=== PATIENT | female | born 1985 | race Caucasian/White ===

== ENCOUNTER 2018-05-17 07:10 | Inpatient (IN) | payer OTHER ==
[2018-05-17] MEDS ORDERED: Ampicillin 2 GM in Sodium Chloride 0.9% 100 ML IV ONE (08:05)
[2018-05-17] MEDS ORDERED: Ondansetron 4 MG Tab.DIS PO PRN (08:05)
[2018-05-17] MEDS ORDERED: Sodium Chloride 0.9% 10 ML Syringe FLUSH PRN (08:05)
[2018-05-17] MEDS ORDERED: Nalbuphine 20 MG/ML 1 ML Syringe IVPUSH PRN (08:05)
--- NOTE | 2018-05-17 08:10 | PCM.LDHP ---
L&D History of Present Illness - General Date of Service: 05/17/18 Admit Problem/Dx: Admission Diagnosis/Problem Admission Diagnosis/Problem Source of Information: Patient History Limitations: Reports: No Limitations - History of Present Illness Introduction:: 32 y/o THONG 05/20/2018 EGVasyl [id number] presented to L&D for Induction of labor. Prior delivery 9#2 oz. GBS positive will begin Ampicillin 11/05/17 initial OB labs Blood type A positive antibody screen negative hemoglobin hematocrit 12.5/36.7 platelets 358,000, rubella immune, serology nonreactive, mixed ford suggestive of contamination on urine culture, hepatitis B surface antigen negative HIV negative TSH 1.6-4 on 10/07/1717. One hour OB glucose screen 127 and 10/15/17. Patient declined GC and chlamydia probe. Ultrasound 11/05/17 estimated gestational age of 6 weeks 5 days and THONG of . On 03/01/18 hemoglobin 10.0/31.4 platelets 212,001 hour OB glucose screen 138 3 hour glucose tolerance test fasting blood sugar 90, 1 hour 171, two-hour 161, 3 hour 119. Serology nonreactive. On 04/22/18 GBS positive. Plan induction of labor, antibiotics for group B strep prophylaxis. Improves with: Reports: None Worsens with: Reports: None Associated Symptoms: Reports: N - Related Data Allergies/Adverse Reactions: Allergies Allergy/AdvReac Type Severity Reaction Status Date / Time cefaclor [From [facility]] Allergy Hives Verified 03/05/18 20:29 Home Medications: Home Meds Levothyroxine [Synthroid] 75 mcg PO DAILY 07/04/15 [History] Iron 1 tab PO BID 03/05/18 [History] PNV95/Ferrous Fumarate/FA [ Tablet] 1 tab PO BID 03/05/18 [History] Doxylamine Succinate [Unisom Sleep Aid] 25 mg PO BEDTIME PRN 05/15/18 [History] Past Medical History Musculoskeletal History: Reports: Other (See Below) (Polyarthritis) Psychiatric History: Reports: ADHD, Anxiety Endocrine/Metabolic History: Reports: Hypothyroidism Hematologic History: Reports: Anemia Other Hematologic History: just during and is on iron supplement along with - Past Surgical History GI Surgical History: Reports: Cholecystectomy Social & Family History - Caffeine Use Caffeine Use: Reports: None H&P Review of Systems - Review of Systems: Review Of Systems: See Below General: Reports: No Symptoms HEENT: Reports: No Symptoms Pulmonary: Reports: No Symptoms Cardiovascular: Reports: No Symptoms Gastrointestinal: Reports: No Symptoms Genitourinary: Reports: No Symptoms Musculoskeletal: Reports: No Symptoms Skin: Reports: No Symptoms Psychiatric: Reports: No Symptoms Neurological: Reports: No Symptoms Hematologic/Lymphatic: Reports: No Symptoms Immunologic: Reports: No Symptoms L&D Exam - Exam Exam: See Below - OB Specific Fundal Height In cm: 39 Movement: Active Heart Tones: Present Heart Tones per Min: 140 Heart Rate (FHR) Variability: Moderate (6-25 bmp) Presentation: Vertex - Cortez Score Cortez Score Cervix Position: Posterior Cortez Score Consistency: Soft Cortez Score Effacement: 0-30% Cortez Score Dilation: 3-4 cm Cortez Score 's Station: -1 ,0 Cortez Score Total: 6 - Exam General: Alert, Oriented HEENT: Conjunctiva Clear, Mucosa Moist & [place], Pupils Equal Neck: Supple, Trachea Midline Lungs: Clear to Auscultation, Normal Respiratory Effort Cardiovascular: Regular Rate, Regular Rhythm GI/Abdominal Exam: Normal Bowel Sounds, Soft, Non-Tender Genitourinary: Normal external exam Extremities: Normal Inspection, Normal Range of Motion, Non-Tender, No Pedal Edema, Normal Capillary Refill, Pedal Edema (1+) Skin: Warm, Dry, Intact Psychiatric: Alert, Normal Affect, Normal Mood - Problem List (1) 39 weeks gestation of SNOMED Code(s): 70784138 ICD Code: Z3A.39 - 39 WEEKS GESTATION OF Status: Acute Current Visit: Yes (2) Anemia affecting in third trimester SNOMED Code(s): 62576853, 12173330 ICD Code: O99.013 - ANEMIA COMPLICATING , THIRD TRIMESTER Status: Acute Current Visit: Yes Problem List Initiated/Reviewed/Updated: No Assessment/Plan Comment:: Amniotomy performed at 0800 hrs. clear fluid category 1 heart rate before and after amniotomy. Patient plans epidural Plan delivery.
[2018-05-17] MEDS ORDERED: Oxytocin/Lactated Ringers 10 UNIT/1,000 ML BAG IV SCH ×2 (08:15)
[2018-05-17] MEDS: Lactated Ringers 1,000 ML IV SCH ×4 (08:22→13:39)
[2018-05-17] MEDS ORDERED: Ondansetron 4 MG/2 ML SDV IVPUSH PRN (09:38)
[2018-05-17] MEDS ORDERED: fentaNYL 100 MCG/2 ML SDV EPIDUR PRN (09:38)
[2018-05-17] MEDS ORDERED: ePHEDrine 50 MG/ML SDV IVPUSH PRN (09:38)
[2018-05-17] MEDS ORDERED: diphenhydrAMINE 50 MG/ML SDV IVPUSH PRN (09:38)
[2018-05-17] MEDS ORDERED: fentaNYL/Bupivacaine-NS 2 MCG/ML-0.125%/PF 100 ML Bag EP SCH (09:45)
[2018-05-17] MEDS: Ampicillin 1 GM in Sodium Chloride 0.9% 100 ML IV SCH ×2 (11:59→17:59)
--- NOTE | 2018-05-17 12:37 | PCM.PREANE ---
Preanesthetic Assessment - Anesthesia/Transfusion/Family Hx Anesthesia History: Prior Anesthesia Without Reaction Family History of Anesthesia Reaction: No Transfusion History: No Prior Transfusion(s) - Review of Systems General: No Symptoms Pulmonary: No Symptoms Cardiovascular: No Symptoms Gastrointestinal: No Symptoms Other: Reports: Thyroid Problems (Hypothyroid), Anxiety (ADHD) - Physical Assessment Pulse: 99 Respiratory Rate: 15 Blood Pressure: 136/90 Vital Signs: Last Vital Signs Temp 37.1 C 05/17/18 08:05 Pulse 99 05/17/18 10:00 Resp 15 05/17/18 08:05 BP 136/90 05/17/18 10:00 Pulse Ox Height: 1.63 m Weight: 102.058 kg ASA Class: 2 Mental Status: Alert & Oriented x3 Airway Class: Mallampati = 2 Dentition: Reports: Normal Dentition Thyro-Mental Finger Breadths: 3 Mouth Opening Finger Breadths: 3 ROM/Head Extension: Full Lungs: Clear to Auscultation, Normal Respiratory Effort Cardiovascular: Regular Rate, Regular Rhythm - Lab Values: Laboratory Last Values WBC 7.09 K/mm3 (3.98-10.04) 05/17/18 07:45 RBC 4.16 M/mm3 (3.98-5.22) 05/17/18 07:45 Hgb 11.1 gm/L (11.2-15.7) L 05/17/18 07:45 Hct 34.1 % (34.1-44.9) 05/17/18 07:45 MCV 82.0 fl (79.4-94.8) 05/17/18 07:45 MCH 26.7 pg (25.6-32.2) 05/17/18 07:45 MCHC 32.6 g/dl (32.2-35.5) 05/17/18 07:45 RDW Std Deviation 45.4 fL (36.4-46.3) 05/17/18 07:45 Plt Count 188 K/mm3 (182-369) 05/17/18 07:45 MPV 12.0 fl (9.4-12.3) 05/17/18 07:45 Neut % (Auto) 74.7 % (34.0-71.1) H 05/17/18 07:45 Lymph % (Auto) 16.6 % (19.3-51.7) L 05/17/18 07:45 [place] % (Auto) 6.6 % (4.7-12.5) 05/17/18 07:45 Eos % (Auto) 1.3 (0.7-5.8) 05/17/18 07:45 Baso % (Auto) 0.1 % (0.1-1.2) 05/17/18 07:45 Neut # (Auto) 5.29 K/mm3 (1.56-6.13) 05/17/18 07:45 Lymph # (Auto) 1.18 K/mm3 (1.18-3.74) 05/17/18 07:45 [place] # (Auto) 0.47 K/mm3 (0.24-0.36) H 05/17/18 07:45 Eos # (Auto) 0.09 K/mm3 (0.04-0.36) 05/17/18 07:45 Baso # (Auto) 0.01 K/mm3 (0.01-0.08) 05/17/18 07:45 - Allergies Allergies/Adverse Reactions: Allergies Allergy/AdvReac Type Severity Reaction Status Date / Time cefaclor [From [facility]] Allergy Hives Verified 03/05/18 20:29 - Acknowledgements Anesthesia Type Planned: Epidural Pt an Appropriate Candidate for the Planned Anesthesia: Yes Alternatives and Risks of Anesthesia Discussed w Pt/Guardian: Yes Pt/Guardian Understands and Agrees with Anesthesia Plan: Yes PreAnesthesia Questionnaire HEENT History: Reports: Impaired Vision, Other (See Below) Other HEENT History: glasses and contacts 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: , 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 Musculoskeletal History: Reports: Other (See Below) (Polyarthritis) Other Musculoskeletal History: arthritis Psychiatric History: Reports: ADHD, Anxiety Endocrine/Metabolic History: Reports: Hypothyroidism Hematologic History: Reports: Anemia Other Hematologic History: just during and is on iron supplement along with - Past Surgical History GI Surgical History: Reports: Cholecystectomy - SUBSTANCE USE Smoking Status *Q: Never Smoker Second Hand Smoke Exposure: No Recreational Drug Use History: No - HOME MEDS Home Medications: Home Meds Levothyroxine [Synthroid] 75 mcg PO DAILY 07/04/15 [History] Iron 1 tab PO BID 03/05/18 [History] Doxylamine Succinate [Unisom Sleep Aid] 25 mg PO BEDTIME PRN 05/15/18 [History] - CURRENT (IN HOUSE) MEDS Current Meds: Current Medications Diphenhydramine HCl (Benadryl) 25 mg IVPUSH Q6H PRN PRN Reason: Pruritis Ephedrine Sulfate (Ephedrine Sulfate) 5 mg IVPUSH ASDIRECTED PRN PRN Reason: Hypotension Fentanyl (Sublimaze) 100 mcg EPIDUR ONETIME PRN PRN Reason: Pain Fentanyl/Bupivacaine HCl (Tdmzflwn-Jovva-Ux 2 Mcg/Ml-0.125%) 100 ml EP ASDIRECTED JOAN Ampicillin Sodium 1 gm/ Sodium (Chloride) 100 mls @ 200 mls/hr IV Q4H JOAN Last Admin: 05/17/18 11:59 Dose: 200 mls/hr Lactated Ringer's (Ringers, Lactated) 1,000 mls @ 100 mls/hr IV ASDIRECTED JOAN Last Admin: 05/17/18 11:58 Dose: 100 mls/hr Oxytocin/Lactated Ringer's (Pitocin In Lr 10 Units/1,000 Ml) 10 unit in 1,000 mls @ 12 mls/hr IV TITRATE JOAN; Protocol Last Titration: 05/17/18 11:15 Dose: 6 munits/min, 36 mls/hr Oxytocin/Lactated Ringer's (Pitocin In Lr 10 Units/1,000 Ml) 10 unit in 1,000 mls @ 500 mls/hr IV .CONTINUOUS [facility] Lidocaine HCl (Xylocaine 1%) 10 ml INJECT ONETIME ONE Stop: 05/17/18 16:01 Nalbuphine HCl (Nubain) 10 mg IVPUSH Q2H PRN PRN Reason: pain Ondansetron HCl (Zofran Odt) 4 mg PO Q4H PRN PRN Reason: Nausea/Vomiting Ondansetron HCl (Zofran) 4 mg IVPUSH ONETIME PRN PRN Reason: Nausea/Vomiting Sodium Chloride (Saline Flush) 10 ml FLUSH ASDIRECTED PRN PRN Reason: Keep Vein Open Discontinued Medications Ampicillin Sodium 2 gm/ Sodium (Chloride) 100 mls @ 200 mls/hr IV ONETIME ONE Stop: 05/17/18 08:34 Last Admin: 05/17/18 08:24 Dose: 200 mls/hr
[2018-05-17] MEDS ORDERED: ePHEDrine/Normal Saline 25 MG/5 ML Syringe ONE (13:00)
[2018-05-17] MEDS ORDERED: Lidocaine 1.5% with EPINEPHrine 1:200,000 5 ML Amp ONE (13:00)
[2018-05-17] MEDS ORDERED: Bupivacaine 0.25% 10 ML SDV ONE (13:00)
--- NOTE | 2018-05-17 14:07 | PCM.SN ---
- Free Text/Narrative Note: Cervix 8 CM, epidural working well. Cat I FHR.
--- NOTE | 2018-05-17 15:25 | PCM.DEL ---
L & D Note - General Info Date of Service: 05/17/18 Mother's Due Date: 05/20/18 - Delivery Note Labor: Augmented by ARM, Augmented by Oxytocin Delivery Outcome: Livebirth (Male liveborn at 1509 hrs. on Thursday05/17/18 KRISH nuchal cord 1 4220 g 9 pounds 4.9 ounces Apgars 8/9 three-vessel cord) Delivery Method: Spontaneous Vaginal Delivery-Single Infant Delivery Mode: Spontaneous Presentation: Left Occiput Anterior (KRISH) Nuchal Cord: Present (Times one easily reduced) Prep: Povidone-Iodine (Betadine Anesthesia Type: Epidural Amniotic Fluid Description: Clear Episiotomy Type: None Laceration: 1st Degree (Midline) Suture type: Other (Monocryl 3-0 times one) Suture size: 3-0 Placenta: Intact, Spontaneous (Placenta delivered at 1512 hrs. on Thursday05/17/18 ) Cord: 3 Vessels Estimated Blood Loss: 250 Resuscitation Needed: No Painter: Suctioned, Bulb Syringe, Stimulated, Warmed, Hilliard Used, Warmer Used Provider: Merrick Roberson Score 1 min: 8 Score 5 min: 9 - General Info Date of Service: 05/17/18 Functional Status: Reports: Pain Controlled - Review of Systems General: Reports: No Symptoms HEENT: Reports: No Symptoms Pulmonary: Reports: No Symptoms Cardiovascular: Reports: No Symptoms Gastrointestinal: Reports: No Symptoms Genitourinary: Reports: No Symptoms Musculoskeletal: Reports: No Symptoms Skin: Reports: No Symptoms Neurological: Reports: No Symptoms Psychiatric: Reports: No Symptoms - Patient Data Vitals - Most Recent: Last Vital Signs Temp 98.7 F 05/17/18 08:05 Pulse 99 05/17/18 12:37 Resp 15 05/17/18 12:37 BP 136/90 05/17/18 12:37 Pulse Ox Weight - Most Recent: 225 lb I&O - Last 24 Hours: Intake & Output 05/17/18 05/17/18 05/17/18 06:59 14:59 22:59 Intake Total 120 Balance 120 Lab Results Last 24 Hours: Laboratory Results - last 24 hr 05/17/18 05/17/18 Range/Units 07:45 07:45 WBC 7.09 (3.98-10.04) K/mm3 RBC 4.16 (3.98-5.22) M/mm3 Hgb 11.1 L (11.2-15.7) gm/L Hct 34.1 (34.1-44.9) % MCV 82.0 (79.4-94.8) fl MCH 26.7 (25.6-32.2) pg MCHC 32.6 (32.2-35.5) g/dl RDW Std Deviation 45.4 (36.4-46.3) fL Plt Count 188 (182-369) K/mm3 MPV 12.0 (9.4-12.3) fl Neut % (Auto) 74.7 H (34.0-71.1) % Lymph % (Auto) 16.6 L (19.3-51.7) % [place] % (Auto) 6.6 (4.7-12.5) % Eos % (Auto) 1.3 (0.7-5.8) Baso % (Auto) 0.1 (0.1-1.2) % Neut # (Auto) 5.29 (1.56-6.13) K/mm3 Lymph # (Auto) 1.18 (1.18-3.74) K/mm3 [place] # (Auto) 0.47 H (0.24-0.36) K/mm3 Eos # (Auto) 0.09 (0.04-0.36) K/mm3 Baso # (Auto) 0.01 (0.01-0.08) K/mm3 RPR Non-reactive (NONREACTIVE) Med Orders - Current: Current Medications Diphenhydramine HCl (Benadryl) 25 mg IVPUSH Q6H PRN PRN Reason: Pruritis Ephedrine Sulfate (Ephedrine Sulfate) 5 mg IVPUSH ASDIRECTED PRN PRN Reason: Hypotension Fentanyl (Sublimaze) 100 mcg EPIDUR ONETIME PRN PRN Reason: Pain Last Admin: 05/17/18 12:38 Dose: 100 mcg Fentanyl/Bupivacaine HCl (Wvwxtdkx-Ojnns-Yx 2 Mcg/Ml-0.125%) 100 ml EP ASDIRECTED JOAN Last Admin: 05/17/18 12:38 Dose: 100 ml Ampicillin Sodium 1 gm/ Sodium (Chloride) 100 mls @ 200 mls/hr IV Q4H [facility] Last Admin: 05/17/18 11:59 Dose: 200 mls/hr Lactated Ringer's (Ringers, Lactated) 1,000 mls @ 100 mls/hr IV ASDIRECTED JOAN Last Admin: 05/17/18 13:39 Dose: 125 mls/hr Oxytocin/Lactated Ringer's (Pitocin In Lr 10 Units/1,000 Ml) 10 unit in 1,000 mls @ 12 mls/hr IV TITRATE JOAN; Protocol Last Titration: 05/17/18 11:15 Dose: 6 munits/min, 36 mls/hr Oxytocin/Lactated Ringer's (Pitocin In Lr 10 Units/1,000 Ml) 10 unit in 1,000 mls @ 500 mls/hr IV .CONTINUOUS JOAN Lidocaine HCl (Xylocaine 1%) 10 ml INJECT ONETIME ONE Stop: 05/17/18 16:01 Nalbuphine HCl (Nubain) 10 mg IVPUSH Q2H PRN PRN Reason: pain Ondansetron HCl (Zofran Odt) 4 mg PO Q4H PRN PRN Reason: Nausea/Vomiting Ondansetron HCl (Zofran) 4 mg IVPUSH ONETIME PRN PRN Reason: Nausea/Vomiting Sodium Chloride (Saline Flush) 10 ml FLUSH ASDIRECTED PRN PRN Reason: Keep Vein Open Discontinued Medications Ampicillin Sodium 2 gm/ Sodium (Chloride) 100 mls @ 200 mls/hr IV ONETIME ONE Stop: 05/17/18 08:34 Last Admin: 05/17/18 08:24 Dose: 200 mls/hr - Exam General: Alert, Oriented HEENT: Pupils Equal, Mucous Membr. Moist/[place] Neck: Supple (Female) Exam: Normal External Exam Extremities: Normal Inspection, Normal Range of Motion, Non-Tender, Normal Capillary Refill, Pedal Edema (1+) Skin: Warm, Dry, Intact Psy/Mental Status: Alert, Normal Affect, Normal Mood - Problem List & Annotations (1) 39 weeks gestation of SNOMED Code(s): 39325636 Code(s): Z3A.39 - 39 WEEKS GESTATION OF Status: Acute Current Visit: Yes (2) Anemia affecting in third trimester SNOMED Code(s): 14818394, 79033445 Code(s): O99.013 - ANEMIA COMPLICATING , THIRD TRIMESTER Status: Acute Current Visit: Yes (3) Nuchal cord without compression, delivered, current hospitalization SNOMED Code(s): 31332285, 734475518 Code(s): O69.81X0 - LABOR AND DEL COMP BY CORD AROUND NECK, W/O COMPRSN, UNSP Status: Acute Current Visit: Yes (4) First degree perineal laceration during delivery SNOMED Code(s): 936175449 Code(s): O70.0 - FIRST DEGREE PERINEAL LACERATION DURING DELIVERY Status: Acute Current Visit: Yes (5) GBS carrier SNOMED Code(s): 8569301709626 Code(s): Z22.330 - CARRIER OF GROUP B STREPTOCOCCUS Status: Acute Current Visit: Yes - Problem List Review Problem List Initiated/Reviewed/Updated: No - My Orders Last 24 Hours: My Active Orders 05/17/18 08:05 Patient Status [ADT] Routine Activity as Tolerated [RC] PFP Communication Order [RC] ASDIRECTED Notify Provider [RC] PRN Urinary Catheter Assessment [RC] ASDIRECTED Vital Signs [RC] PER UNIT ROUTINE Nalbuphine [Nubain] 10 mg IVPUSH Q2H PRN Ondansetron [Zofran ODT] 4 mg PO Q4H PRN Sodium Chloride 0.9% [Saline Flush] 10 ml FLUSH ASDIRECTED PRN Electronic Heart Tones Ext w TOCO [WOMSER] Routine Electronic Heart Tones Internal [WOMSER] Per Unit Routine Peripheral IV Insertion Adult [OM.PC] Routine Resuscitation Status Routine 05/17/18 08:06 Peripheral IV Care [RC] Q2HR 05/17/18 08:08 Pump Management, Intrathecal [RC] ASDIRECTED 05/17/18 08:15 Lactated Ringers [Ringers, Lactated] 1,000 ml IV ASDIRECTED Oxytocin/Lactated Ringers [Pitocin in LR 10 Units/1,000 ML] 10 unit in 1,000 ml IV .CONTINUOUS Oxytocin/Lactated Ringers [Pitocin in LR 10 Units/1,000 ML] 10 unit in 1,000 ml IV TITRATE 05/17/18 12:00 Ampicillin 1 gm Sodium Chloride 0.9% [Normal Saline] 100 ml IV Q4H 05/17/18 16:00 Lidocaine 1% [Xylocaine 1%] 10 ml INJECT ONETIME ONE 05/17/18 Breakfast Regular Diet [DIET] - Plan Plan:: Amniotomy performed at 0800 hrs. clear fluid category 1 heart rate before and after amniotomy. Patient plans epidural Plan delivery.
[2018-05-17] MEDS ORDERED: Lidocaine 1% 50 ML MDV INJECT ONE (16:00)
[2018-05-17] MEDS ORDERED: Simethicone 80 MG Tab.Chew PO PRN (17:35)
[2018-05-17] MEDS ORDERED: Witch Hazel Medicated Pads 100/Jar TOP PRN (17:35)
[2018-05-17] MEDS ORDERED: Acetaminophen/oxyCODONE 325-5 MG Tab PO PRN (17:35)
[2018-05-17] MEDS ORDERED: Lanolin 100% Cream 7 GM Tube TOP PRN (17:35)
[2018-05-17] MEDS ORDERED: Benzocaine/Menthol 20%-0.5% Spray 56 GM Canister TOP PRN (17:35)
[2018-05-17] MEDS ORDERED: Docusate Sodium 100 MG Cap PO PRN (17:35)
[2018-05-17] MEDS: Ibuprofen 600 MG Tab PO PRN (19:28)
[2018-05-17] MEDS: Acetaminophen 325 MG Tab PO PRN (20:51)
[2018-05-18] MEDS: Ibuprofen 600 MG Tab PO PRN ×3 (00:13→13:18)
[2018-05-18] MEDS: Acetaminophen 325 MG Tab PO PRN ×3 (03:41→16:29)
[2018-05-18] MEDS ORDERED: Levothyroxine 75 MCG Tab PO SCH (06:00)
--- NOTE | 2018-05-18 07:30 | PCM48HPAN ---
Post Anesthesia Note - EVALUATION WITHIN 48HRS OF ANESTHETIC Vital Signs in Normal Range: Yes Patient Participated in Evaluation: Yes Respiratory Function Stable: Yes Airway Patent: Yes Cardiovascular Function Stable: Yes Hydration Status Stable: Yes Pain Control Satisfactory: Yes Nausea and Vomiting Control Satisfactory: Yes Mental Status Recovered: Yes Pulse Rate: 87 Resp Rate: 16 Temperature: 98.1 F Blood Pressure: 114/66
[2018-05-18 09:07] VITALS: BP 120/77
--- NOTE | 2018-05-18 13:35 | PCM.DCSUM1 ---
Discharge Summary - Hospital Course Free Text/Narrative:: [facility] LIVE L/D Delivery Note Patient Name: GLADYS ADAME Date of : 87 Patient Status: Inpatient Attending Provider: Merrick Roberson Date: 05/17/18 15:20 Initialization Date: 05/17/18 15:20 L & D Note - General Info Date of Service: 05/17/18 Mother's Due Date: 05/20/18 - Delivery Note Labor: Augmented by ARM, Augmented by Oxytocin Delivery Outcome: Livebirth (Male liveborn at 1509 hrs. on Thursday05/17/18 KRISH nuchal cord 1 4220 g 9 pounds 4.9 ounces Apgars 8/9 three-vessel cord) Delivery Method: Spontaneous Vaginal Delivery-Single Infant Delivery Mode: Spontaneous Presentation: Left Occiput Anterior (KRISH) Nuchal Cord: Present (Times one easily reduced) Prep: Povidone-Iodine (Betadine Anesthesia Type: Epidural Amniotic Fluid Description: Clear Episiotomy Type: None Laceration: 1st Degree (Midline) Suture type: Other (Monocryl 3-0 times one) Suture size: 3-0 Placenta: Intact, Spontaneous (Placenta delivered at 1512 hrs. on Thursday05/17/18 ) Cord: 3 Vessels Estimated Blood Loss: 250 Resuscitation Needed: No [place]: Suctioned, Bulb Syringe, Stimulated, Warmed, [place] Used, Warmer Used Provider: Merrick Roberson Score 1 min: 8 Score 5 min: 9 - General Info Date of Service: 05/17/18 Functional Status: Reports: Pain Controlled - Review of Systems General: Reports: No Symptoms HEENT: Reports: No Symptoms Pulmonary: Reports: No Symptoms Cardiovascular: Reports: No Symptoms Gastrointestinal: Reports: No Symptoms Genitourinary: Reports: No Symptoms Musculoskeletal: Reports: No Symptoms Skin: Reports: No Symptoms Neurological: Reports: No Symptoms Psychiatric: Reports: No Symptoms - Patient Data Vitals - Most Recent: Last Vital Signs Temp 98.7 F 05/17/18 08:05 Pulse 99 05/17/18 12:37 Resp 15 05/17/18 12:37 BP 136/90 05/17/18 12:37 Pulse Ox Weight - Most Recent: 225 lb I&O - Last 24 Hours: Intake & Output 05/17/18 05/17/18 05/17/18 06:59 14:59 22:59 Intake Total 120 Balance 120 Lab Results Last 24 Hours: Laboratory Results - last 24 hr 05/17/18 05/17/18 Range/Units 07:45 07:45 WBC 7.09 (3.98-10.04) K/mm3 RBC 4.16 (3.98-5.22) M/mm3 Hgb 11.1 L (11.2-15.7) gm/L Hct 34.1 (34.1-44.9) % MCV 82.0 (79.4-94.8) fl MCH 26.7 (25.6-32.2) pg MCHC 32.6 (32.2-35.5) g/dl RDW Std Deviation 45.4 (36.4-46.3) fL Plt Count 188 (182-369) K/mm3 MPV 12.0 (9.4-12.3) fl Neut % (Auto) 74.7 H (34.0-71.1) % Lymph % (Auto) 16.6 L (19.3-51.7) % [place] % (Auto) 6.6 (4.7-12.5) % Eos % (Auto) 1.3 (0.7-5.8) Baso % (Auto) 0.1 (0.1-1.2) % Neut # (Auto) 5.29 (1.56-6.13) K/mm3 Lymph # (Auto) 1.18 (1.18-3.74) K/mm3 [place] # (Auto) 0.47 H (0.24-0.36) K/mm3 Eos # (Auto) 0.09 (0.04-0.36) K/mm3 Baso # (Auto) 0.01 (0.01-0.08) K/mm3 RPR Non-reactive (NONREACTIVE) Med Orders - Current: Current Medications Diphenhydramine HCl (Benadryl) 25 mg IVPUSH Q6H PRN PRN Reason: Pruritis Ephedrine Sulfate (Ephedrine Sulfate) 5 mg IVPUSH ASDIRECTED PRN PRN Reason: Hypotension Fentanyl (Sublimaze) 100 mcg EPIDUR ONETIME PRN PRN Reason: Pain Last Admin: 05/17/18 12:38 Dose: 100 mcg Fentanyl/Bupivacaine HCl (Natoyyeb-Ecaeg-Ly 2 Mcg/Ml-0.125%) 100 ml EP ASDIRECTED JOAN Last Admin: 05/17/18 12:38 Dose: 100 ml Ampicillin Sodium 1 gm/ Sodium (Chloride) 100 mls @ 200 mls/hr IV Q4H JOAN Last Admin: 05/17/18 11:59 Dose: 200 mls/hr Lactated Ringer's (Ringers, Lactated) 1,000 mls @ 100 mls/hr IV ASDIRECTED JOAN Last Admin: 05/17/18 13:39 Dose: 125 mls/hr Oxytocin/Lactated Ringer's (Pitocin In Lr 10 Units/1,000 Ml) 10 unit in 1,000 mls @ 12 mls/hr IV TITRATE JOAN; Protocol Last Titration: 05/17/18 11:15 Dose: 6 munits/min, 36 mls/hr Oxytocin/Lactated Ringer's (Pitocin In Lr 10 Units/1,000 Ml) 10 unit in 1,000 mls @ 500 mls/hr IV .CONTINUOUS [facility] Lidocaine HCl (Xylocaine 1%) 10 ml INJECT ONETIME ONE Stop: 05/17/18 16:01 Nalbuphine HCl (Nubain) 10 mg IVPUSH Q2H PRN PRN Reason: pain Ondansetron HCl (Zofran Odt) 4 mg PO Q4H PRN PRN Reason: Nausea/Vomiting Ondansetron HCl (Zofran) 4 mg IVPUSH ONETIME PRN PRN Reason: Nausea/Vomiting Sodium Chloride (Saline Flush) 10 ml FLUSH ASDIRECTED PRN PRN Reason: Keep Vein Open Discontinued Medications Ampicillin Sodium 2 gm/ Sodium (Chloride) 100 mls @ 200 mls/hr IV ONETIME ONE Stop: 05/17/18 08:34 Last Admin: 05/17/18 08:24 Dose: 200 mls/hr - Exam General: Alert, Oriented HEENT: Pupils Equal, Mucous Membr. Moist/[place] Neck: Supple (Female) Exam: Normal External Exam Extremities: Normal Inspection, Normal Range of Motion, Non-Tender, Normal Capillary Refill, Pedal Edema (1+) Skin: Warm, Dry, Intact Psy/Mental Status: Alert, Normal Affect, Normal Mood - Problem List & Annotations (1) 39 weeks gestation of SNOMED Code(s): 21995220 Code(s): Z3A.39 - 39 WEEKS GESTATION OF Status: Acute Current Visit: Yes (2) Anemia affecting in third trimester SNOMED Code(s): 27975595, 60215165 Code(s): O99.013 - ANEMIA COMPLICATING , THIRD TRIMESTER Status: Acute Current Visit: Yes (3) Nuchal cord without compression, delivered, current hospitalization SNOMED Code(s): 18909012, 210135994 Code(s): O69.81X0 - LABOR AND DEL COMP BY CORD AROUND NECK, W/O COMPRSN, UNSP Status: Acute Current Visit: Yes (4) First degree perineal laceration during delivery SNOMED Code(s): 831158105 Code(s): O70.0 - FIRST DEGREE PERINEAL LACERATION DURING DELIVERY Status: Acute Current Visit: Yes (5) GBS carrier SNOMED Code(s): 0418288143850 Code(s): Z22.330 - CARRIER OF GROUP B STREPTOCOCCUS Status: Acute Current Visit: Yes - Problem List Review Problem List Initiated/Reviewed/Updated: No - My Orders Last 24 Hours: My Active Orders 05/17/18 08:05 Patient Status [ADT] Routine Activity as Tolerated [RC] PFP Communication Order [RC] ASDIRECTED Notify Provider [RC] PRN Urinary Catheter Assessment [RC] ASDIRECTED Vital Signs [RC] PER UNIT ROUTINE Nalbuphine [Nubain] 10 mg IVPUSH Q2H PRN Ondansetron [Zofran ODT] 4 mg PO Q4H PRN Sodium Chloride 0.9% [Saline Flush] 10 ml FLUSH ASDIRECTED PRN Electronic Heart Tones Ext w TOCO [WOMSER] Routine Electronic Heart Tones Internal [WOMSER] Per Unit Routine Peripheral IV Insertion Adult [OM.PC] Routine Resuscitation Status Routine 05/17/18 08:06 Peripheral IV Care [RC] Q2HR 05/17/18 08:08 Pump Management, Intrathecal [RC] ASDIRECTED 05/17/18 08:15 Lactated Ringers [Ringers, Lactated] 1,000 ml IV ASDIRECTED Oxytocin/Lactated Ringers [Pitocin in LR 10 Units/1,000 ML] 10 unit in 1,000 ml IV .CONTINUOUS Oxytocin/Lactated Ringers [Pitocin in LR 10 Units/1,000 ML] 10 unit in 1,000 ml IV TITRATE 05/17/18 12:00 Ampicillin 1 gm Sodium Chloride 0.9% [Normal Saline] 100 ml IV Q4H 05/17/18 16:00 Lidocaine 1% [Xylocaine 1%] 10 ml INJECT ONETIME ONE 05/17/18 Breakfast Regular Diet [DIET] - Plan Plan:: Amniotomy performed at 0800 hrs. clear fluid category 1 heart rate before and after amniotomy. Patient plans epidural Plan delivery. HPI Initial Comments: [facility] LIVE L/D Delivery Note Patient Name: GLADYS ADAME Date of : 87 Patient Status: Inpatient Attending Provider: Merrick Roberson Date: 05/17/18 15:20 Initialization Date: 05/17/18 15:20 L & D Note - General Info Date of Service: 05/17/18 Mother's Due Date: 05/20/18 - Delivery Note Labor: Augmented by ARM, Augmented by Oxytocin Delivery Outcome: Livebirth (Male liveborn at 1509 hrs. on Thursday05/17/18 KRISH nuchal cord 1 4220 g 9 pounds 4.9 ounces Apgars 8/9 three-vessel cord) Delivery Method: Spontaneous Vaginal Delivery-Single Infant Delivery Mode: Spontaneous Presentation: Left Occiput Anterior (KRISH) Nuchal Cord: Present (Times one easily reduced) Prep: Povidone-Iodine (Betadine Anesthesia Type: Epidural Amniotic Fluid Description: Clear Episiotomy Type: None Laceration: 1st Degree (Midline) Suture type: Other (Monocryl 3-0 times one) Suture size: 3-0 Placenta: Intact, Spontaneous (Placenta delivered at 1512 hrs. on Thursday05/17/18 ) Cord: 3 Vessels Estimated Blood Loss: 250 Resuscitation Needed: No [place]: Suctioned, Bulb Syringe, Stimulated, Warmed, [place] Used, Warmer Used Provider: Merrick Roberson Score 1 min: 8 Score 5 min: 9 - General Info Date of Service: 05/17/18 Functional Status: Reports: Pain Controlled - Review of Systems General: Reports: No Symptoms HEENT: Reports: No Symptoms Pulmonary: Reports: No Symptoms Cardiovascular: Reports: No Symptoms Gastrointestinal: Reports: No Symptoms Genitourinary: Reports: No Symptoms Musculoskeletal: Reports: No Symptoms Skin: Reports: No Symptoms Neurological: Reports: No Symptoms Psychiatric: Reports: No Symptoms - Patient Data Vitals - Most Recent: Last Vital Signs Temp 98.7 F 05/17/18 08:05 Pulse 99 05/17/18 12:37 Resp 15 05/17/18 12:37 BP 136/90 05/17/18 12:37 Pulse Ox Weight - Most Recent: 225 lb I&O - Last 24 Hours: Intake & Output 05/17/18 05/17/18 05/17/18 06:59 14:59 22:59 Intake Total 120 Balance 120 Lab Results Last 24 Hours: Laboratory Results - last 24 hr 05/17/18 05/17/18 Range/Units 07:45 07:45 WBC 7.09 (3.98-10.04) K/mm3 RBC 4.16 (3.98-5.22) M/mm3 Hgb 11.1 L (11.2-15.7) gm/L Hct 34.1 (34.1-44.9) % MCV 82.0 (79.4-94.8) fl MCH 26.7 (25.6-32.2) pg MCHC 32.6 (32.2-35.5) g/dl RDW Std Deviation 45.4 (36.4-46.3) fL Plt Count 188 (182-369) K/mm3 MPV 12.0 (9.4-12.3) fl Neut % (Auto) 74.7 H (34.0-71.1) % Lymph % (Auto) 16.6 L (19.3-51.7) % [place] % (Auto) 6.6 (4.7-12.5) % Eos % (Auto) 1.3 (0.7-5.8) Baso % (Auto) 0.1 (0.1-1.2) % Neut # (Auto) 5.29 (1.56-6.13) K/mm3 Lymph # (Auto) 1.18 (1.18-3.74) K/mm3 [place] # (Auto) 0.47 H (0.24-0.36) K/mm3 Eos # (Auto) 0.09 (0.04-0.36) K/mm3 Baso # (Auto) 0.01 (0.01-0.08) K/mm3 RPR Non-reactive (NONREACTIVE) Med Orders - Current: Current Medications Diphenhydramine HCl (Benadryl) 25 mg IVPUSH Q6H PRN PRN Reason: Pruritis Ephedrine Sulfate (Ephedrine Sulfate) 5 mg IVPUSH ASDIRECTED PRN PRN Reason: Hypotension Fentanyl (Sublimaze) 100 mcg EPIDUR ONETIME PRN PRN Reason: Pain Last Admin: 05/17/18 12:38 Dose: 100 mcg Fentanyl/Bupivacaine HCl (Ghlhqmue-Cdqyt-Qj 2 Mcg/Ml-0.125%) 100 ml EP ASDIRECTED JOAN Last Admin: 05/17/18 12:38 Dose: 100 ml Ampicillin Sodium 1 gm/ Sodium (Chloride) 100 mls @ 200 mls/hr IV Q4H JOAN Last Admin: 05/17/18 11:59 Dose: 200 mls/hr Lactated Ringer's (Ringers, Lactated) 1,000 mls @ 100 mls/hr IV ASDIRECTED JOAN Last Admin: 05/17/18 13:39 Dose: 125 mls/hr Oxytocin/Lactated Ringer's (Pitocin In Lr 10 Units/1,000 Ml) 10 unit in 1,000 mls @ 12 mls/hr IV TITRATE JOAN; Protocol Last Titration: 05/17/18 11:15 Dose: 6 munits/min, 36 mls/hr Oxytocin/Lactated Ringer's (Pitocin In Lr 10 Units/1,000 Ml) 10 unit in 1,000 mls @ 500 mls/hr IV .CONTINUOUS JOAN Lidocaine HCl (Xylocaine 1%) 10 ml INJECT ONETIME ONE Stop: 05/17/18 16:01 Nalbuphine HCl (Nubain) 10 mg IVPUSH Q2H PRN PRN Reason: pain Ondansetron HCl (Zofran Odt) 4 mg PO Q4H PRN PRN Reason: Nausea/Vomiting Ondansetron HCl (Zofran) 4 mg IVPUSH ONETIME PRN PRN Reason: Nausea/Vomiting Sodium Chloride (Saline Flush) 10 ml FLUSH ASDIRECTED PRN PRN Reason: Keep Vein Open Discontinued Medications Ampicillin Sodium 2 gm/ Sodium (Chloride) 100 mls @ 200 mls/hr IV ONETIME ONE Stop: 05/17/18 08:34 Last Admin: 05/17/18 08:24 Dose: 200 mls/hr - Exam General: Alert, Oriented HEENT: Pupils Equal, Mucous Membr. Moist/[place] Neck: Supple (Female) Exam: Normal External Exam Extremities: Normal Inspection, Normal Range of Motion, Non-Tender, Normal Capillary Refill, Pedal Edema (1+) Skin: Warm, Dry, Intact Psy/Mental Status: Alert, Normal Affect, Normal Mood - Problem List & Annotations (1) 39 weeks gestation of SNOMED Code(s): 66889769 Code(s): Z3A.39 - 39 WEEKS GESTATION OF Status: Acute Current Visit: Yes (2) Anemia affecting in third trimester SNOMED Code(s): 86467264, 83062536 Code(s): O99.013 - ANEMIA COMPLICATING , THIRD TRIMESTER Status: Acute Current Visit: Yes (3) Nuchal cord without compression, delivered, current hospitalization SNOMED Code(s): 88520098, 731592279 Code(s): O69.81X0 - LABOR AND DEL COMP BY CORD AROUND NECK, W/O COMPRSN, UNSP Status: Acute Current Visit: Yes (4) First degree perineal laceration during delivery SNOMED Code(s): 899933493 Code(s): O70.0 - FIRST DEGREE PERINEAL LACERATION DURING DELIVERY Status: Acute Current Visit: Yes (5) GBS carrier SNOMED Code(s): 1149135682403 Code(s): Z22.330 - CARRIER OF GROUP B STREPTOCOCCUS Status: Acute Current Visit: Yes - Problem List Review Problem List Initiated/Reviewed/Updated: No - My Orders Last 24 Hours: My Active Orders 05/17/18 08:05 Patient Status [ADT] Routine Activity as Tolerated [RC] PFP Communication Order [RC] ASDIRECTED Notify Provider [RC] PRN Urinary Catheter Assessment [RC] ASDIRECTED Vital Signs [RC] PER UNIT ROUTINE Nalbuphine [Nubain] 10 mg IVPUSH Q2H PRN Ondansetron [Zofran ODT] 4 mg PO Q4H PRN Sodium Chloride 0.9% [Saline Flush] 10 ml FLUSH ASDIRECTED PRN Electronic Heart Tones Ext w TOCO [WOMSER] Routine Electronic Heart Tones Internal [WOMSER] Per Unit Routine Peripheral IV Insertion Adult [OM.PC] Routine Resuscitation Status Routine 05/17/18 08:06 Peripheral IV Care [RC] Q2HR 05/17/18 08:08 Pump Management, Intrathecal [RC] ASDIRECTED 05/17/18 08:15 Lactated Ringers [Ringers, Lactated] 1,000 ml IV ASDIRECTED Oxytocin/Lactated Ringers [Pitocin in LR 10 Units/1,000 ML] 10 unit in 1,000 ml IV .CONTINUOUS Oxytocin/Lactated Ringers [Pitocin in LR 10 Units/1,000 ML] 10 unit in 1,000 ml IV TITRATE 05/17/18 12:00 Ampicillin 1 gm Sodium Chloride 0.9% [Normal Saline] 100 ml IV Q4H 05/17/18 16:00 Lidocaine 1% [Xylocaine 1%] 10 ml INJECT ONETIME ONE 05/17/18 Breakfast Regular Diet [DIET] - Plan Plan:: Amniotomy performed at 0800 hrs. clear fluid category 1 heart rate before and after amniotomy. Patient plans epidural Plan delivery. Brief History: [facility] LIVE . L/D Delivery Note. [facility] Record Number: [id number]. Date of : Patient Status: Inpatient. Attending Provider: Merrick Roberson Number: [id number]. Date: 05/17/18 15:20Initialization Date: 05/17/18 15:20. L & D Note. - General Info. Date of Service: 05/17/18. Mother's Due Date: 05/20/18. - Delivery Note. Labor: Augmented by ARM, Augmented by Oxytocin. Delivery Outcome: Livebirth (Male liveborn at 1509 hrs. on Thursday05/17/18 KRISH nuchal cord 1 4220 g 9 pounds 4.9 ounces Apgars 8/9 three-vessel cord). Infant Delivery Method: Spontaneous Vaginal Delivery-Single. Delivery Mode: Spontaneous. Presentation: Left Occiput Anterior (KRISH). Nuchal Cord: Present (Times one easily reduced). Prep: Povidone-Iodine (Betadine. Anesthesia Type: Epidural. Amniotic Fluid Description: Clear. Episiotomy Type : None. Laceration: 1st Degree (Midline). Suture type: Other (Monocryl 3-0 times one). Suture size: 3-0. Placenta: Intact, Spontaneous (Placenta delivered at 1512 hrs. on Thursday05/17/18). Cord: 3 Vessels. Estimated Blood Loss: 250. Resuscitation Needed: No. [place]: Suctioned, Bulb Syringe, Stimulated, Warmed, [place] Used, Warmer Used. Provider: Merrick Roberson. Score 1 min: 8. Score 5 min: 9. - General Info. Date of Service: 05/17/18. Functional Status: Reports: Pain Controlled. - Review of Systems. General: Reports: No Symptoms. HEENT: Reports: No Symptoms. Pulmonary: Reports: No Symptoms. Cardiovascular: Reports: No Symptoms. Gastrointestinal: Reports: No Symptoms. Genitourinary: Reports: No Symptoms. Musculoskeletal: Reports: No Symptoms. Skin: Reports: No Symptoms. Neurological: Reports: No Symptoms. Psychiatric: Reports: No Symptoms. - Patient Data. Vitals - Most Recent: Last Vital Signs. Temp 98.7 F 05/17/18 08:05. Pulse 99 05/17/18 12:37. Resp 15 05/17/18 12:37. BP 136/90 12:37. Pulse Ox. Weight - Most Recent: 225 lb. I&O - Last 24 Hours: Intake & Output. 05/17/1900. 06:5914:5922:59. Intake [id number]. [id number]. Lab Results Last 24 Hours: Laboratory Results - last 24 hr. Range/Units. 07:4507:45. WBC 7.09 (3.98-10.04) K/mm3. RBC 4.16 (3.98-5.22) M/mm3. Hgb 11.1 L (11.2-15.7) gm/L. Hct 34.1 (34.1-44.9) %. MCV 82.0 (79.4-94.8) fl. MCH 26.7 (25.6-32.2) pg. MCHC 32.6 (32.2-35.5) g/ dl. RDW Std Deviation 45.4 (36.4-46.3) fL. Plt Count 188 (182-369) K/mm3. MPV 12.0 (9.4-12.3) fl. Neut % (Auto) 74.7 H (34.0-71.1) %. Lymph % (Auto) 16.6 L (19.3-51.7) %. [place] % (Auto) 6.6 (4.7-12.5) %. Eos % (Auto) 1.3 (0.7- 5.8). Baso % (Auto) 0.1 (0.1-1.2) %. Neut # (Auto) 5.29 (1.56-6.13) K/mm3. Lymph # (Auto) 1.18 (1.18-3.74) K/mm3. [place] # (Auto) 0.47 H (0.24-0.36) K/ mm3. Eos # (Auto) 0.09 (0.04-0.36) K/mm3. Baso # (Auto) 0.01 (0.01-0.08) K/ mm3. RPR Non-reactive (NONREACTIVE). Med Orders - Current: Current Medications. Diphenhydramine HCl (Benadryl) 25 mg IVPUSH Q6H PRN. PRN Reason : Pruritis. Ephedrine Sulfate (Ephedrine Sulfate) 5 mg IVPUSH ASDIRECTED PRN. PRN Reason: Hypotension. Fentanyl (Sublimaze) 100 mcg EPIDUR ONETIME PRN. PRN Reason: Pain. Last Admin: 05/17/18 12:38 Dose: 100 mcg. Fentanyl/ Bupivacaine HCl (Ssejaxhc-Fudzg-Fp 2 Mcg/Ml-0.125%) 100 ml EP ASDIRECTED JOAN. Last Admin: 05/17/18 12:38 Dose: 100 ml. Ampicillin Sodium 1 gm/ Sodium ( Chloride) 100 mls @ 200 mls/hr IV Q4H JOAN. Last Admin: 05/17/18 11:59 Dose: 200 mls/hr. Lactated Ringer's (Ringers, Lactated) 1,000 mls @ 100 mls/hr IV ASDIRECTED JOAN. Last Admin: 05/17/18 13:39 Dose: 125 mls/hr. Oxytocin/ Lactated Ringer's (Pitocin In Lr 10 Units/1,000 Ml) 10 unit in 1,000 mls @ 12 mls/hr IV TITRATE JOAN; Protocol. Last Titration: 05/17/18 11:15 Dose: 6 munits /min, 36 mls/hr. Oxytocin/Lactated Ringer's (Pitocin In Lr 10 Units/1,000 Ml) 10 unit in 1,000 mls @ 500 mls/hr IV .CONTINUOUS JOAN. Lidocaine HCl (Xylocaine 1%) 10 ml INJECT ONETIME ONE. Stop: 05/17/18 16:01. Nalbuphine HCl (Nubain) 10 mg IVPUSH Q2H PRN. PRN Reason: pain. Ondansetron HCl (Zofran Odt) 4 mg PO Q4H PRN. PRN Reason: Nausea/Vomiting. Ondansetron HCl (Zofran) 4 mg IVPUSH ONETIME PRN. PRN Reason: Nausea/Vomiting. Sodium Chloride (Saline Flush) 10 ml FLUSH ASDIRECTED PRN. PRN Reason: Keep Vein Open. Discontinued Medications. Ampicillin Sodium 2 gm/ Sodium (Chloride) 100 mls @ 200 mls/hr IV ONETIME ONE. Stop: 05/17/18 08:34. Last Admin: 05/17/18 08:24 Dose: 200 mls/hr. - Exam. General: Alert, Oriented. HEENT: Pupils Equal, Mucous Membr. Moist/[place]. Neck: Supple. (Female) Exam: Normal External Exam. Extremities : Normal Inspection, Normal Range of Motion, Non-Tender, Normal Capillary Refill , Pedal Edema (1+). Skin: Warm, Dry, Intact. Psy/Mental Status: Alert, Normal Affect, Normal Mood. - Problem List & Annotations. (1) 39 weeks gestation of . SNOMED Code(s): 51790161. Code(s): Z3A.39 - 39 WEEKS GESTATION OF Status: Acute Current Visit: Yes. (2) Anemia affecting in third trimester. SNOMED Code(s): 33832104, 93405979. Code(s): O99.013 - ANEMIA COMPLICATING , THIRD TRIMESTER Status: Acute Current Visit: Yes. (3) Nuchal cord without compression, delivered, current hospitalization. SNOMED Code(s): 54045350, 200269676. Code(s): O69.81X0 - LABOR AND DEL COMP BY CORD AROUND NECK, W/O COMPRSN, UNSP Status: Acute Current Visit: Yes. (4) First degree perineal laceration during delivery. SNOMED Code(s): 712009448. Code(s): O70.0 - FIRST DEGREE PERINEAL LACERATION DURING DELIVERY Status: Acute Current Visit: Yes. (5) GBS carrier. SNOMED Code(s): 1674609648018. Code(s): Z22.330 - CARRIER OF GROUP B STREPTOCOCCUS Status: Acute Current Visit: Yes. - Problem List Review. Problem List Initiated/Reviewed/Updated: No. - My Orders. Last 24 Hours: My Active Orders. 05/17/18 08:05. Patient Status [ADT] Routine. Activity as Tolerated [RC] PFP. Communication Order [RC ] ASDIRECTED. Notify Provider [RC] PRN. Urinary Catheter Assessment [RC] ASDIRECTED. Vital Signs [RC] PER UNIT ROUTINE. Nalbuphine [Nubain] 10 mg IVPUSH Q2H PRN. Ondansetron [Zofran ODT] 4 mg PO Q4H PRN. Sodium Chloride 0.9% [Saline Flush] 10 ml FLUSH ASDIRECTED PRN. Electronic Heart Tones Ext w TOCO [WOMSER] Routine. Electronic Heart Tones Internal [WOMSER] Per Unit Routine. Peripheral IV Insertion Adult [OM.PC] Routine. Resuscitation Status Routine. 05/17/18 08:06. Peripheral IV Care [RC] Q2HR. 05/17/18 08:08. Pump Management, Intrathecal [RC] ASDIRECTED. 05/17/18 08:15. Lactated Ringers [Ringers, Lactated] 1,000 ml IV ASDIRECTED. Oxytocin/ Lactated Ringers [Pitocin in LR 10 Units/1,000 ML] 10 unit in 1,000 ml IV .CONTINUOUS. Oxytocin/Lactated Ringers [Pitocin in LR 10 Units/1,000 ML] 10 unit in 1,000 ml IV TITRATE. 05/17/18 12:00. Ampicillin 1 gm Sodium Chloride 0.9% [Normal Saline] 100 ml IV Q4H. 05/17/18 16:00. Lidocaine 1% [ Xylocaine 1%] 10 ml INJECT ONETIME ONE. 05/17/18 Breakfast. Regular Diet [ DIET]. - Plan. Plan:: Amniotomy performed at 0800 hrs. clear fluid category 1 heart rate before and after amniotomy. Patient plans epidural. Plan delivery. Diagnosis: Stroke: No - Discharge Data Discharge Date: 05/18/18 Discharge Disposition: Home, Self-Care 01 Condition: Good - Discharge Diagnosis/Problem(s) (1) 39 weeks gestation of SNOMED Code(s): 08912000 ICD Code: Z3A.39 - 39 WEEKS GESTATION OF Status: Acute Current Visit: Yes (2) Anemia affecting in third trimester SNOMED Code(s): 62433068, 02531752 ICD Code: O99.013 - ANEMIA COMPLICATING , THIRD TRIMESTER Status: Acute Current Visit: Yes (3) Nuchal cord without compression, delivered, current hospitalization SNOMED Code(s): 75647375, 083070874 ICD Code: O69.81X0 - LABOR AND DEL COMP BY CORD AROUND NECK, W/O COMPRSN, UNSP Status: Acute Current Visit: Yes (4) First degree perineal laceration during delivery SNOMED Code(s): 521418329 ICD Code: O70.0 - FIRST DEGREE PERINEAL LACERATION DURING DELIVERY Status: Acute Current Visit: Yes (5) GBS carrier SNOMED Code(s): 8221235132091 ICD Code: Z22.330 - CARRIER OF GROUP B STREPTOCOCCUS Status: Acute Current Visit: Yes - Patient Summary/Data Complications: none Consults: None Hospital Course: Uneventful - Patient Instructions Diet: Usual Diet as Tolerated Driving: Do Not Drive (2 days) Showering/Bathing: May Shower Notify Provider of: Fever, Increased Pain, Swelling and Redness, Drainage, Nausea and/or Vomiting - Discharge Plan *PRESCRIPTION DRUG MONITORING PROGRAM REVIEWED*: Not Applicable *COPY OF PRESCRIPTION DRUG MONITORING REPORT IN PATIENT BRADY: Not Applicable Home Medications: Home Meds Levothyroxine [Synthroid] 75 mcg PO DAILY 07/04/15 [History] Iron 1 tab PO BID 03/05/18 [History] Doxylamine Succinate [Unisom Sleep Aid] 25 mg PO BEDTIME PRN 05/15/18 [History] Referrals: Merrick Roberson MD [Primary Care Provider] - (Two weeks) - Discharge Summary/Plan Comment DC Time >30 min.: No - Patient Data Vitals - Most Recent: Last Vital Signs Temp 97.3 F 05/18/18 08:56 Pulse 102 H 05/18/18 08:56 Resp 15 05/18/18 08:56 BP 120/77 05/18/18 08:56 Pulse Ox 93 L 05/18/18 08:56 Weight - Most Recent: 225 lb I&O - Last 24 hours: Intake & Output 05/17/18 05/18/18 05/18/18 22:59 06:59 14:59 Intake Total 0 0 Balance 0 0 Lab Results - Last 24 hrs: Laboratory Results - last 24 hr 05/18/18 Range/Units 06:21 WBC 8.11 (3.98-10.04) K/mm3 RBC 3.51 L (3.98-5.22) M/mm3 Hgb 9.3 L (11.2-15.7) gm/L Hct 28.9 L (34.1-44.9) % MCV 82.3 (79.4-94.8) fl MCH 26.5 (25.6-32.2) pg MCHC 32.2 (32.2-35.5) g/dl RDW Std Deviation 44.6 (36.4-46.3) fL Plt Count 152 L (182-369) K/mm3 MPV 11.4 (9.4-12.3) fl Neut % (Auto) 71.8 H (34.0-71.1) % Lymph % (Auto) 18.5 L (19.3-51.7) % [place] % (Auto) 8.1 (4.7-12.5) % Eos % (Auto) 1.0 (0.7-5.8) Baso % (Auto) 0.1 (0.1-1.2) % Neut # (Auto) 5.82 (1.56-6.13) K/mm3 Lymph # (Auto) 1.50 (1.18-3.74) K/mm3 [place] # (Auto) 0.66 H (0.24-0.36) K/mm3 Eos # (Auto) 0.08 (0.04-0.36) K/mm3 Baso # (Auto) 0.01 (0.01-0.08) K/mm3 Med Orders - Current: Current Medications Acetaminophen (Tylenol) 650 mg PO Q4H PRN PRN Reason: mild pain or fever Last Admin: 05/18/18 10:07 Dose: 650 mg Benzocaine/Menthol (Dermoplast Pain Relief [place]) 0 gm TOP ASDIRECTED PRN PRN Reason: Perineal Comfort Measure Last Admin: 05/18/18 00:16 Dose: 1 spray Docusate Sodium (Colace) 100 mg PO BID PRN PRN Reason: Constipation Emollient Ointment (Lansinoh Hpa) 0 gm TOP ASDIRECTED PRN PRN Reason: Sore Nipples Ibuprofen (Motrin) 600 mg PO Q4H PRN PRN Reason: Mild pain or fever Last Admin: 05/18/18 13:18 Dose: 600 mg Levothyroxine Sodium (Levothyroxine) 75 mcg PO ACBRK [facility] Last Admin: 05/18/18 06:06 Dose: Not Given Oxycodone/Acetaminophen (Percocet 325-5 Mg) 1 tab PO Q4H PRN PRN Reason: Pain (moderate 4-6) Simethicone (Simethicone) 80 mg PO Q4H PRN PRN Reason: Gas Witch Deborah (Tucks) 1 pad TOP ASDIRECTED PRN PRN Reason: Hemorrhoid pain Last Admin: 05/18/18 00:15 Dose: 1 pad Discontinued Medications Diphenhydramine HCl (Benadryl) 25 mg IVPUSH Q6H PRN PRN Reason: Pruritis Ephedrine Sulfate (Ephedrine Sulfate) 5 mg IVPUSH ASDIRECTED PRN PRN Reason: Hypotension Fentanyl (Sublimaze) 100 mcg EPIDUR ONETIME PRN PRN Reason: Pain Last Admin: 05/17/18 12:38 Dose: 100 mcg Fentanyl/Bupivacaine HCl (Dekppnxl-Esaqm-Bo 2 Mcg/Ml-0.125%) 100 ml EP ASDIRECTED [facility] Last Admin: 05/17/18 12:38 Dose: 100 ml Ampicillin Sodium 2 gm/ Sodium (Chloride) 100 mls @ 200 mls/hr IV ONETIME ONE Stop: 05/17/18 08:34 Last Admin: 05/17/18 08:24 Dose: 200 mls/hr Ampicillin Sodium 1 gm/ Sodium (Chloride) 100 mls @ 200 mls/hr IV Q4H [facility] Last Admin: 05/17/18 17:59 Dose: Not Given Lactated Ringer's (Ringers, Lactated) 1,000 mls @ 100 mls/hr IV ASDIRECTED JOAN Last Admin: 05/17/18 13:39 Dose: 125 mls/hr Oxytocin/Lactated Ringer's (Pitocin In Lr 10 Units/1,000 Ml) 10 unit in 1,000 mls @ 12 mls/hr IV TITRATE JOAN; Protocol Last Titration: 05/17/18 15:09 Dose: 999 mls/hr Oxytocin/Lactated Ringer's (Pitocin In Lr 10 Units/1,000 Ml) 10 unit in 1,000 mls @ 500 mls/hr IV .CONTINUOUS [facility] Lidocaine HCl (Xylocaine 1%) 10 ml INJECT ONETIME ONE Stop: 05/17/18 16:01 Last Admin: 05/17/18 17:59 Dose: Not Given Nalbuphine HCl (Nubain) 10 mg IVPUSH Q2H PRN PRN Reason: pain Ondansetron HCl (Zofran Odt) 4 mg PO Q4H PRN PRN Reason: Nausea/Vomiting Ondansetron HCl (Zofran) 4 mg IVPUSH ONETIME PRN PRN Reason: Nausea/Vomiting Sodium Chloride (Saline Flush) 10 ml FLUSH ASDIRECTED PRN PRN Reason: Keep Vein Open
== END 2018-05-18 16:45 | disposition home or self-care (01) | DRG 807 ==
LOC: JD.OB 07:10 → OBSVTOIN 15:09 → JD.OB 15:09
PROVIDERS: ADMIT Obstetrics & Gynecology; ATTEND Obstetrics & Gynecology
PROC: 10E0XZZ Delivery of Products of Conception, External Approach (ICD-10-PCS; principal; 2018-05-17)
PROC: 0HQ9XZZ Repair Perineum Skin, External Approach (ICD-10-PCS; principal; 2018-05-17)
PROC: 10907ZC Drainage of Amniotic Fluid, Therapeutic from Products of Conception, Via Natural or Artificial Opening (ICD-10-PCS; principal; 2018-05-17)
PROC: 00HU33Z Insertion of Infusion Device into Spinal Canal, Percutaneous Approach (ICD-10-PCS; 2018-05-17)
PROC: 3E0R3BZ Introduction of Anesthetic Agent into Spinal Canal, Percutaneous Approach (ICD-10-PCS; 2018-05-17)
DX: O99.824 Streptococcus B carrier state complicating childbirth (principal); Z37.0 Single live birth; O69.81X0 Labor and delivery complicated by cord around neck, without compression, not applicable or unspecified; O99.02 Anemia complicating childbirth; D64.9 Anemia, unspecified; O70.0 First degree perineal laceration during delivery; Z3A.39 39 weeks gestation of pregnancy; O99.344 Other mental disorders complicating childbirth; O99.284 Endocrine, nutritional and metabolic diseases complicating childbirth; E03.9 Hypothyroidism, unspecified; F41.9 Anxiety disorder, unspecified; Z90.49 Acquired absence of other specified parts of digestive tract; F90.9 Attention-deficit hyperactivity disorder, unspecified type; Z88.1 Allergy status to other antibiotic agents; Z79.899 Other long term (current) drug therapy
CPT/HCPCS: 36415; 51701; 59025; 59409; 85025; 86592; A9270-GY; J0290; J2590; J3010; J3490; J7030; J7050; J7120

== ENCOUNTER 2020-08-01 18:14 | Emergency (ER) | payer OTHER ==
[2020-08-01] MEDS ORDERED: HYDROmorphone 1 MG/ML Syringe IVPUSH STA (18:50)
[2020-08-01] MEDS ORDERED: Ondansetron 4 MG/2 ML SDV IVPUSH ONE (18:50)
[2020-08-01] MEDS ORDERED: Sodium Chloride 0.9% 1,000 ML IV SCH (19:00)
--- NOTE | 2020-08-01 19:04 | EDM.PDOC ---
ED HPI GENERAL MEDICAL PROBLEM - General Chief Complaint: Abdominal Pain Stated Complaint: abdominal pain Time Seen by Provider: 08/01/20 18:38 Source of Information: Reports: Patient, RN Notes Reviewed History Limitations: Reports: No Limitations - History of Present Illness INITIAL COMMENTS - FREE TEXT/NARRATIVE: Patient is a 34-year-old female who presents to the ER for her middle abdominal pain. Patient notes that she didn't feel quite well yesterday, and had a dull ache or pain in her bladder, but this is progressively gotten worse, and has since developed into a sharp stabbing pain around her bellybutton area. She states that it is constant, but gets worse at times. She thought maybe she could have just had a viral stomach bug, she is also had 1 loose stool at home. She thought there there was times where it felt a little bit like it hurts to pee however she has had no frequency or urgency component. She has not taken any pain medications for this like Tylenol or ibuprofen. She states she is felt pain like this maybe once before, before she had her gallbladder taken out. She still retains her appendix. She denies being anyone that is been known to be sick. She denies fevers or chills, cough or shortness of breath, nausea or vomiting. She notes that she did have one loose stool today. Patient notes that she had her last menstrual period 2 weeks ago, but she is and has had unprotected sex since then, and she is not on control, so there is a remote chance she could be . Patient states that when the pain was at its worst, she had to lower herself to the ground, because she became flush and felt very hot. Middle Abdomen Pain Score (Numeric/FACES): 8 - Related Data Allergies Allergy/AdvReac Type Severity Reaction Status Date / Time cefaclor [From Ceclor] Allergy Severe Hives Verified 08/01/20 18:32 Home Meds: Home Meds Levothyroxine [Synthroid] 75 mcg PO DAILY 07/04/15 [History] Acetaminophen/HYDROcodone [Richardson 325-5 MG] 1 tab PO Q6H PRN #12 tablet 08/01/20 [Rx] Doxycycline [Vibramycin] 50 mg PO BID 08/01/20 [History] Lisdexamfetamine Dimesylate [Vyvanse] 40 mg PO DAILY 08/01/20 [History] Ondansetron [Zofran ODT] 4 mg PO Q8H PRN #15 tab.dis 08/01/20 [Rx] Past Medical History HEENT History: Reports: Impaired Vision, Other (See Below) Other HEENT History: glasses and contacts [employer] History: Reports: , Spontaneous Musculoskeletal History: Reports: Other (See Below) Other Musculoskeletal History: arthritis Psychiatric History: Reports: ADHD, Anxiety Endocrine/Metabolic History: Reports: Hypothyroidism Hematologic History: Reports: Anemia Other Hematologic History: just during and is on iron supplement along with - Infectious Disease History Infectious Disease History: Reports: Novel Coronavirus - Past Surgical History GI Surgical History: Reports: Cholecystectomy Social & Family History - Family History Family Medical History: No Pertinent Family History - Tobacco Use Tobacco Use Status *Q: Never Tobacco User Second Hand Smoke Exposure: Yes - Caffeine Use Caffeine Use: Reports: None - Recreational Drug Use Recreational Drug Use: No ED ROS GENERAL - Review of Systems Review Of Systems: Comprehensive ROS is negative, except as noted in HPI. ED EXAM, GI/ABD - Physical Exam Exam: See Below Exam Limited By: No Limitations General Appearance: Alert, WD/WN, No Apparent Distress Respiratory/Chest: No Respiratory Distress, Lungs Clear, Normal Breath Sounds, No Accessory Muscle Use, Chest Non-Tender Cardiovascular: Normal Peripheral Pulses, Regular Rate, Rhythm, No Edema GI/Abdominal Exam: Normal Bowel Sounds, Soft, No Distention, No Mass, Guarding, Tender (periumbilical). No: Rigid, Rebound Extremities: Normal Inspection, Normal Capillary Refill Neurological: Alert, Oriented, Normal Cognition, No Motor/Sensory Deficits Psychiatric: Normal Affect, Normal Mood, Anxious (somewhat the patient seems to be in quite a bit of pain) Skin Exam: Warm, Dry, Intact, Normal Color, No Rash Course - Vital Signs Last Recorded V/S: Last Vital Signs Temp 97.8 F 08/01/20 18:27 Pulse 81 08/01/20 21:50 Resp 16 08/01/20 21:50 BP 102/70 08/01/20 21:50 Pulse Ox 96 08/01/20 21:50 - Orders/Labs/Meds Labs: Laboratory Tests 08/01/20 08/01/20 08/01/20 Range/Units 19:19 19:19 19:19 WBC 7.20 (3.98-10.04) K/mm3 RBC 4.95 (3.98-5.22) M/mm3 Hgb 13.2 (11.2-15.7) gm/dl Hct 40.5 (34.1-44.9) % MCV 81.8 (79.4-94.8) fl MCH 26.7 (25.6-32.2) pg MCHC 32.6 (32.2-35.5) g/dl RDW Std Deviation 38.5 (36.4-46.3) fL Plt Count 333 (182-369) K/mm3 MPV 10.8 (9.4-12.3) fl Neutrophils % (Manual) 67 H (40-60) % Band Neutrophils % 0 (0-10) % Lymphocytes % (Manual) 23 (20-40) % Atypical Lymphs % 0 % Monocytes % (Manual) 7 (2-10) % Eosinophils % (Manual) 2 (0.7-5.8) % Basophils % (Manual) 1 (0.1-1.2) Platelet Estimate Adequate RBC Morph Comment Normal Sodium 141 (136-145) mEq/L Potassium 3.5 (3.5-5.1) mEq/L Chloride 104 (98-107) mEq/L Carbon Dioxide 26 (21-32) mEq/L Anion Gap 14.5 (5-15) BUN 15 (7-18) mg/dL Creatinine 0.9 (0.55-1.02) mg/dL Est Cr Clr Drug Dosing 73.55 mL/min Estimated GFR (MDRD) > 60 (>60) mL/min BUN/Creatinine Ratio 16.7 (14-18) Glucose 110 H (74-106) mg/dL Calcium 8.7 (8.5-10.1) mg/dL Total Bilirubin 0.5 (0.2-1.0) mg/dL AST 19 (15-37) U/L ALT 28 (14-59) U/L Alkaline Phosphatase 57 (46-116) U/L C-Reactive Protein < 0.2 (<1.0) mg/dL Total Protein 7.5 (6.4-8.2) g/dl Albumin 4.0 (3.4-5.0) g/dl Globulin 3.5 gm/dL Albumin/Globulin Ratio 1.1 (1-2) Lipase 91 (73-393) U/L HCG, Qual Negative (NEGATIVE) Urine Color (Yellow) Urine Appearance (Clear) Urine pH (5.0-8.0) Ur Specific Avalon (1.005-1.030) Urine Protein (Negative) Urine Glucose (UA) (Negative) Urine Ketones (Negative) Urine Occult Blood (Negative) Urine Nitrite (Negative) Urine Bilirubin (Negative) Urine Urobilinogen (0.2-1.0) Ur Leukocyte Esterase (Negative) Urine RBC (0-5) /hpf Urine WBC (0-5) /hpf Ur Squamous Epith Cells (0-5) /hpf Urine Bacteria (FEW) /hpf Urine Mucus (FEW) /hpf 08/01/20 Range/Units 21:32 WBC (3.98-10.04) K/mm3 RBC (3.98-5.22) M/mm3 Hgb (11.2-15.7) gm/dl Hct (34.1-44.9) % MCV (79.4-94.8) fl MCH (25.6-32.2) pg MCHC (32.2-35.5) g/dl RDW Std Deviation (36.4-46.3) fL Plt Count (182-369) K/mm3 MPV (9.4-12.3) fl Neutrophils % (Manual) (40-60) % Band Neutrophils % (0-10) % Lymphocytes % (Manual) (20-40) % Atypical Lymphs % % Monocytes % (Manual) (2-10) % Eosinophils % (Manual) (0.7-5.8) % Basophils % (Manual) (0.1-1.2) Platelet Estimate RBC Morph Comment Sodium (136-145) mEq/L Potassium (3.5-5.1) mEq/L Chloride (98-107) mEq/L Carbon Dioxide (21-32) mEq/L Anion Gap (5-15) BUN (7-18) mg/dL Creatinine (0.55-1.02) mg/dL Est Cr Clr Drug Dosing mL/min Estimated GFR (MDRD) (>60) mL/min BUN/Creatinine Ratio (14-18) Glucose (74-106) mg/dL Calcium (8.5-10.1) mg/dL Total Bilirubin (0.2-1.0) mg/dL AST (15-37) U/L ALT (14-59) U/L Alkaline Phosphatase (46-116) U/L C-Reactive Protein (<1.0) mg/dL Total Protein (6.4-8.2) g/dl Albumin (3.4-5.0) g/dl Globulin gm/dL Albumin/Globulin Ratio (1-2) Lipase (73-393) U/L HCG, Qual (NEGATIVE) Urine Color Yellow (Yellow) Urine Appearance Clear (Clear) Urine pH 6.5 (5.0-8.0) Ur Specific Avalon > or = 1.030 (1.005-1.030) Urine Protein Trace H (Negative) Urine Glucose (UA) Negative (Negative) Urine Ketones 2+ H (Negative) Urine Occult Blood Negative (Negative) Urine Nitrite Negative (Negative) Urine Bilirubin Negative (Negative) Urine Urobilinogen 0.2 (0.2-1.0) Ur Leukocyte Esterase Negative (Negative) Urine RBC 0-5 (0-5) /hpf Urine WBC 5-10 H (0-5) /hpf Ur Squamous Epith Cells 0-5 (0-5) /hpf Urine Bacteria Few (FEW) /hpf Urine Mucus Moderate H (FEW) /hpf Meds: Medications Discontinued Medications Generic Name Dose Route Start Last Admin Trade Name Kasrten PRN Reason Stop Dose Admin Diatrizoate Meglum/Diatrizoate Sod 120 ml 08/01/20 19:53 08/01/20 20:54 Diatrizoate Meglumine/Diatrizoate Sodium 37% 120 Ml Bottle PO 08/01/20 19:54 30 ml ONETIME ONE Administration Fentanyl 50 mcg 08/01/20 19:58 08/01/20 20:05 Fentanyl 100 Mcg/2 Ml Sdv IVPUSH 08/01/20 19:59 50 mcg ONETIME ONE Administration Hydromorphone HCl 1 mg 08/01/20 18:50 08/01/20 19:19 Hydromorphone 1 Mg/Ml Syringe IVPUSH 08/01/20 18:51 1 mg ONETIME STA Administration Sodium Chloride 1,000 mls @ 999 mls/hr 08/01/20 19:00 08/01/20 19:19 Normal Saline IV 999 mls/hr ASDIRECTED JOAN Administration Iopamidol 100 ml 08/01/20 19:53 08/01/20 20:54 Iopamidol 612 Mg/Ml 100 Ml Bottle IVPUSH 08/01/20 19:54 100 ml ONETIME ONE Administration Lorazepam 1 mg 08/01/20 19:58 08/01/20 20:04 Lorazepam 2 Mg/Ml Sdv IVPUSH 08/01/20 19:59 1 mg ONETIME ONE Administration Ondansetron HCl 4 mg 08/01/20 18:50 08/01/20 19:19 Ondansetron 4 Mg/2 Ml Sdv IVPUSH 08/01/20 18:51 4 mg ONETIME ONE Administration Sodium Chloride 10 ml 08/01/20 20:00 08/01/20 20:55 Sodium Chloride 0.9% 10 Ml Syringe FLUSH 10 ml ASDIRECTED JOAN Administration - Re-Assessments/Exams Free Text/Narrative Re-Assessment/Exam: 08/01/20 19:03 Patient presents to the ER for her periumbilical pain. We will go ahead get IV started, get some baseline labs, I have ordered a urinalysis, with a urine hCG, along with a serum hCG, to clear her for imaging as I do believe she warrants an abdomen pelvis CT. She will get some fluids, nausea meds, and pain meds in the interim. 08/01/20 19:58 The patient notes that she is having pain to her upper abdomen now as well, she does seem increasingly anxious and is requesting something for anxiety as well. I will try 50 mcg fentanyl and 1 mg IV Ativan for ongoing management. 08/01/20 20:04 Patient's labs are done preliminarily, CBC is unremarkable, CMP also unremarkable, her hCG is negative. 08/01/20 21:[address] has been done, there is a right ovarian corpus luteal cyst the appendix was visualized and appeared normal. There are no other acute abdominal pelvic abnormalities. Patient was made aware of the findings, and states she does have a history of ovarian cysts. She was going to provide us with a urine sample, will hopefully get her going home with general recommendations. 08/01/20 21:52 Urine shows no sign of infection. Departure - Departure Time of Disposition: 21:52 Disposition: Home, Self-Care 01 Condition: Good Clinical Impression: Mesenteric adenitis Ovarian cyst Qualifiers: Laterality: right Qualified Code(s): N83.201 - Unspecified ovarian cyst, right side - Discharge Information *PRESCRIPTION DRUG MONITORING PROGRAM REVIEWED*: Yes *COPY OF PRESCRIPTION DRUG MONITORING REPORT IN PATIENT BRADY: No Prescriptions: Acetaminophen/HYDROcodone [Richardson 325-5 MG] 1 tab PO Q6H PRN #12 tablet PRN Reason: Pain Ondansetron [Zofran ODT] 4 mg PO Q8H PRN #15 tab.dis PRN Reason: Nausea Instructions: Mesenteric Adenitis, Adult, Ovarian Cyst, [id number] Referrals: Mireille Feliciano NP [Primary Care Provider] - Forms: ED Department Discharge Additional Instructions: You have been evaluated in the ED for your abdomen pain. Laboratory evaluation done at today's visit was unremarkable. Your CT demonstrated mesenteric adenitis, which is inflamed lymph nodes in the right lower quadrantand/or lower abdomen, that can mimic the signs and symptoms of appendicitis. Treatment for this is anti-inflammatories, as this will likely get better with time. Your CT also demonstrated a right-sided corpus luteum cyst. Which could be causing some of your pain as well. Please use the Zofran every 8 hours as needed for nausea. This medication was electronically sent to the [facility] located near [facility]. Recommend you follow-up with your [employer], for further evaluation of your right- sided ovarian cyst, regarding sizing and/or otherwise. Please return to the ED if your symptoms should change or worsen. Sepsis Event Note (ED) - Evaluation Sepsis Screening Result: No Definite Risk
[2020-08-01] MEDS ORDERED: Diatrizoate Meglumine/Diatrizoate Sodium 37% 120 ML Bottle PO ONE (19:53)
[2020-08-01] MEDS ORDERED: Iopamidol 612 MG/ML 100 ML Bottle IVPUSH ONE (19:53)
[2020-08-01] MEDS ORDERED: fentaNYL 100 MCG/2 ML SDV IVPUSH ONE (19:58)
[2020-08-01] MEDS ORDERED: LORazepam 2 MG/ML SDV IVPUSH ONE (19:58)
[2020-08-01] MEDS ORDERED: Sodium Chloride 0.9% 10 ML Syringe FLUSH SCH (20:00)
--- NOTE | 2020-08-01 21:18 | CT ---
CT abdomen and pelvis Technique: Multiple axial sections were obtained from above the dome of the diaphragm inferiorly through the pubic symphysis. Intravenous contrast was utilized. Oral contrast was utilized which shows minimal small bowel opacification. Most of the contrast remains within the stomach. Reconstructed coronal and sagittal images were obtained. Delayed images were also obtained through the bladder. Comparison: No prior abdominal or pelvic CT study is available. Findings: Visualized lung bases show nothing acute. Liver contains no focal parenchymal abnormality. Surgical clips are noted from prior cholecystectomy. Spleen appears within normal limits. Adrenal glands show no nodule. Kidneys show symmetric contrast enhancement. There is a small low density finding within the upper left kidney which is too small to get accurate Hounsfield unit measurements but most likely represents a small cyst measuring 7 mm. Kidneys are otherwise unremarkable. Pancreas is within normal limits. Abdominal aorta shows no aneurysm. Appendix is seen which is normal. Small lymph nodes are seen within the right lower quadrant. No pelvic mass or adenopathy is seen. No free fluid or inflammatory change is appreciated. Delayed images show contrast within the bladder. Very minimal fat-containing umbilical hernia is noted. Bone window settings were reviewed which show no acute osseous finding. Impression: 1. Small lymph nodes within the right lower quadrant. Difficult to exclude so-called mesenteric adenitis. 2. Small cyst within the upper left kidney. 3. No additional abnormality is identified on CT study of the abdomen and pelvis. Diagnostic code #2
[2020-08-01 22:21] VITALS: BP 102/70; PULSE 81
== END 2020-08-01 22:05 | disposition home or self-care (01) ==
LOC: JD.ED 18:14
DX: N83.201 Unspecified ovarian cyst, right side (principal); I88.0 Nonspecific mesenteric lymphadenitis; E03.9 Hypothyroidism, unspecified; Z79.899 Other long term (current) drug therapy; Z77.22 Contact with and (suspected) exposure to environmental tobacco smoke (acute) (chronic); Z88.1 Allergy status to other antibiotic agents
CPT/HCPCS: 36415; 74177; 80053; 81001; 83690; 84703; 85007; 85027; 86140; 96374; 96375; 99284; J1170; J2060; J2405; J3010; J7030; Q9963; Q9967

== ENCOUNTER 2023-05-21 15:43 | Emergency (ER) | payer BC ==
[2023-05-21] MEDS ORDERED: Sodium Chloride 0.9% 10 ML Syringe FLUSH PRN (16:14)
[2023-05-21 17:14] LABS: BASOPHILS PERCENT AUTO 0.5 % (0.0-1.0); EOSINOPHILS ABSOLUTE AUTO 0.2 K/mm3 (0.0-0.4); EOSINOPHILS PERCENT AUTO 3.4 % (0.0-6.0); HEMATOCRIT 33.5 % (37.0-47.0); HEMOGLOBIN 10.8 gm/dl (12.0-16.0); IMMATURE GRAN ABSOLUTE AUTO 0.05 K/mm3 (0.00-0.05); IMMATURE GRAN PERCENT AUTO 0.8 % (0.0-0.4); LYMPHOCYTES ABSOLUTE AUTO 1.1 K/mm3 (1.0-4.8); LYMPHOCYTES PERCENT AUTO 17.1 % (24.0-44.0); MEAN CORPUSCULAR HGB CONC 32.2 g/dl (32.0-36.0); MEAN CORPUSCULAR VOLUME 80.7 fl (83.0-99.0); MEAN PLATELET VOLUME 10.4 fl (9.4-12.3); MONOCYTES ABSOLUTE AUTO 0.5 K/mm3 (0.0-0.8); MONOCYTES PERCENT AUTO 7.5 % (0.0-8.0); NEUTROPHILS ABSOLUTE AUTO 4.4 K/mm3 (1.8-7.7); NEUTROPHILS PERCENT AUTO 70.7 % (41.0-71.0); PLATELET COUNT,PLT 295 K/mm3 (150-400); RED BLOOD CELL COUNT 4.15 M/mm3 (4.10-5.30); WHITE BLOOD CELL COUNT,WBC 6.24 K/mm3 (3.9-11.3)
[2023-05-21 17:48] LABS: ALBUMIN 3.5 g/dl (3.4-5.0); ANION GAP 12.6 (5-15); BILIRUBIN TOTAL 0.4 mg/dL (0.2-1.0); BUN/CREATININE RATIO 12.5 (14-18); CALCIUM 8.6 mg/dL (8.5-10.1); CREATININE 0.8 mg/dL (0.55-1.02); EST CRCL DRUG DOSING (CG) 87.48 mL/min; POTASSIUM,K 3.6 mEq/L (3.5-5.1); PROTEIN TOTAL,TP 6.9 g/dl (6.4-8.2)
[2023-05-21 17:53] LABS: TSH 1.542 uIU/mL (0.358-3.74)
[2023-05-21 17:56] LABS: CORONAVIRUS COVID-19 NAA NEGATIVE (NEGATIVE); INFLUENZA A NAA NEGATIVE (NEGATIVE)
[2023-05-21] MEDS ORDERED: Magnesium Oxide 400 MG Tab PO ONE (18:10)
[2023-05-21 19:14] LABS: APPEARANCE,URINE SLT CLOUDY (Clear); BILIRUBIN,URINE NEGATIVE (Negative); COLOR,URINE YELLOW (Yellow); GLUCOSE,URINE NEGATIVE (Negative); KETONES,URINE NEGATIVE (Negative); LEUKOCYTE ESTERASE,URINE NEGATIVE (Negative); NITRITE,URINE NEGATIVE (Negative); OCCULT BLOOD,URINE NEGATIVE (Negative); PH,URINE 6.5 (5.0-8.0); PROTEIN,URINE NEGATIVE (Negative); UROBILINOGEN,URINE 0.2 (0.2-1.0)
[2023-05-21 19:34] VITALS: BP 107/69; PULSE 82
== END 2023-05-21 19:31 | disposition home or self-care (01) ==
LOC: JD.ED 15:43
DX: R00.2 Palpitations (principal); R01.2 Other cardiac sounds; E83.42 Hypomagnesemia; E03.9 Hypothyroidism, unspecified; Z86.16 Personal history of COVID-19; Z79.899 Other long term (current) drug therapy; Z88.1 Allergy status to other antibiotic agents
CPT/HCPCS: 0240U; 36415; 71046; 80053; 81003; 83735; 84443; 84484; 85025; 85379; 93005; 99285; A9270; J3490; 93010; 99284

== ENCOUNTER 2024-01-12 06:57 | Inpatient (IN) | payer BC ==
[~2024-01-12 06:57] MED LIST: Bupivacaine 0.25% 10 ML SDV ONE
[2024-01-12] MEDS ORDERED: Lidocaine 1% 50 ML MDV INJECT PRN (08:19)
[2024-01-12] MEDS ORDERED: Sodium Chloride 0.9% 10 ML Syringe FLUSH PRN (08:19)
[2024-01-12] MEDS ORDERED: Oxytocin/0.9 % Sodium Chloride 30 UNIT/500 ML BAG IV SCH (08:30)
[2024-01-12 08:44] LABS: BASOPHILS PERCENT AUTO 0.1 % (0.0-1.0); EOSINOPHILS ABSOLUTE AUTO 0.1 K/mm3 (0.0-0.4); EOSINOPHILS PERCENT AUTO 1.5 % (0.0-6.0); HEMATOCRIT 31.2 % (37.0-47.0); HEMOGLOBIN 10.3 gm/dl (12.0-16.0); IMMATURE GRAN ABSOLUTE AUTO 0.09 K/mm3 (0.00-0.05); IMMATURE GRAN PERCENT AUTO 1.2 % (0.0-0.4); LYMPHOCYTES ABSOLUTE AUTO 1.3 K/mm3 (1.0-4.8); LYMPHOCYTES PERCENT AUTO 18.3 % (24.0-44.0); MEAN CORPUSCULAR HEMOGLOBIN 26.8 pg (28.0-32.0); MEAN PLATELET VOLUME 12.2 fl (9.4-12.3); MONOCYTES ABSOLUTE AUTO 0.6 K/mm3 (0.0-0.8); MONOCYTES PERCENT AUTO 8.1 % (0.0-8.0); NEUTROPHILS ABSOLUTE AUTO 5.1 K/mm3 (1.8-7.7); NEUTROPHILS PERCENT AUTO 70.8 % (41.0-71.0); RED BLOOD CELL COUNT 3.85 M/mm3 (4.10-5.30); WHITE BLOOD CELL COUNT,WBC 7.27 K/mm3 (3.9-11.3)
[2024-01-12 08:49] LABS: PLATELET COUNT,PLT 147 K/mm3 (150-400)
[2024-01-12] MEDS: Ampicillin 2 GM in Sodium Chloride 0.9% 100 ML IV SCH (09:25)
[2024-01-12] MEDS: Lactated Ringers 1,000 ML IV SCH (11:30)
[2024-01-12] MEDS: Oxytocin/0.9 % Sodium Chloride 30 UNIT/500 ML BAG IV SCH (11:30)
[2024-01-12] MEDS ORDERED: diphenhydrAMINE 50 MG/ML SDV IVPUSH PRN (12:18)
[2024-01-12] MEDS ORDERED: ePHEDrine 50 MG/ML SDV IVPUSH PRN (12:18)
[2024-01-12] MEDS: Ampicillin 1 GM in Sodium Chloride 0.9% 100 ML IV SCH (13:47)
[2024-01-12] MEDS: fentaNYL 100 MCG/2 ML SDV EPIDUR PRN (15:34)
[2024-01-12] MEDS: Bupivacaine/fentaNYL/NS 100 ML Bag EPIDUR PRN (15:35)
[2024-01-12] MEDS: Ondansetron 4 MG/2 ML SDV IVPUSH SCH (17:31)
[2024-01-12] MEDS ORDERED: Hydrocortisone Acetate 25 MG Supp RECTAL PRN (20:48)
[2024-01-12] MEDS ORDERED: Witch Hazel Medicated Pads 40/Jar TOP PRN (20:48)
[2024-01-12] MEDS ORDERED: Oxytocin/Lactated Ringers 30 UNIT/500 ML BAG IV SCH (20:48)
[2024-01-12] MEDS ORDERED: Magnesium Hydroxide 400 MG/5 ML Susp 30 ML Cup PO PRN (20:48)
[2024-01-12] MEDS ORDERED: Benzocaine/Menthol 20%-0.5% Spray 78 GM Cannister TOP PRN (20:48)
[2024-01-12] MEDS ORDERED: Simethicone 80 MG Tab.Chew PO PRN (20:48)
[2024-01-13] MEDS: Ibuprofen 600 MG Tab PO SCH (06:22)
[2024-01-13] MEDS: Docusate Sodium 100 MG Cap PO PRN (06:27)
[2024-01-13] MEDS: Levothyroxine 75 MCG Tab PO SCH (06:29)
[2024-01-13] MEDS: Sodium Chloride 0.9% 10 ML Syringe FLUSH SCH (07:31)
[2024-01-13] MEDS: Prenatal Multivitamin with Calcium/Folic Acid/Iron Tab PO SCH (09:32)
[2024-01-13] MEDS: Acetaminophen 325 MG Tab PO PRN (11:14)
[2024-01-13 17:23] VITALS: PULSE 83
[2024-01-13 18:54] LABS: BASOPHILS PERCENT AUTO 0.2 % (0.0-1.0); EOSINOPHILS ABSOLUTE AUTO 0.1 K/mm3 (0.0-0.4); EOSINOPHILS PERCENT AUTO 1.4 % (0.0-6.0); HEMOGLOBIN 8.4 gm/dl (12.0-16.0); IMMATURE GRAN ABSOLUTE AUTO 0.07 K/mm3 (0.00-0.05); IMMATURE GRAN PERCENT AUTO 0.8 % (0.0-0.4); LYMPHOCYTES ABSOLUTE AUTO 1.6 K/mm3 (1.0-4.8); LYMPHOCYTES PERCENT AUTO 19.1 % (24.0-44.0); MEAN CORPUSCULAR HEMOGLOBIN 26.8 pg (28.0-32.0); MEAN CORPUSCULAR HGB CONC 32.3 g/dl (32.0-36.0); MEAN CORPUSCULAR VOLUME 82.8 fl (83.0-99.0); MEAN PLATELET VOLUME 12.3 fl (9.4-12.3); MONOCYTES ABSOLUTE AUTO 0.5 K/mm3 (0.0-0.8); MONOCYTES PERCENT AUTO 6.3 % (0.0-8.0); NEUTROPHILS ABSOLUTE AUTO 6.2 K/mm3 (1.8-7.7); NEUTROPHILS PERCENT AUTO 72.2 % (41.0-71.0); PLATELET COUNT,PLT 141 K/mm3 (150-400); RED BLOOD CELL COUNT 3.14 M/mm3 (4.10-5.30); WHITE BLOOD CELL COUNT,WBC 8.57 K/mm3 (3.9-11.3)
[2024-01-13 19:28] LABS: A/G RATIO 0.6 (1-2); ALBUMIN 2.1 g/dl (3.4-5.0); BILIRUBIN TOTAL 0.2 mg/dL (0.2-1.0); BUN/CREATININE RATIO 8.8 (14-18); CALCIUM 8.4 mg/dL (8.5-10.1); CREATININE 0.8 mg/dL (0.55-1.02); EST CRCL DRUG DOSING (CG) 86.64 mL/min; MAGNESIUM 1.3 mg/dL (1.8-2.4); PROTEIN TOTAL,TP 5.4 g/dl (6.4-8.2)
[2024-01-13] MEDS: Ondansetron 4 MG Tab.DIS PO ONE (20:01)
[2024-01-13 21:06] VITALS: BP 114/72
== END 2024-01-13 21:20 | disposition home or self-care (01) | DRG 560 ==
LOC: JD.OB 06:57 → OBSVTOIN 19:10 → JD.OB 19:11
PROVIDERS: ADMIT Obstetrics & Gynecology; ATTEND Obstetrics & Gynecology
PROC: 10E0XZZ Delivery of Products of Conception, External Approach (ICD-10-PCS; principal; 2024-01-12)
PROC: 0KQM0ZZ Repair Perineum Muscle, Open Approach (ICD-10-PCS; 2024-01-12)
PROC: 3E0R3BZ Introduction of Anesthetic Agent into Spinal Canal, Percutaneous Approach (ICD-10-PCS; 2024-01-12)
PROC: 00HU33Z Insertion of Infusion Device into Spinal Canal, Percutaneous Approach (ICD-10-PCS; 2024-01-12)
DX: O99.824 Streptococcus B carrier state complicating childbirth (principal); O99.284 Endocrine, nutritional and metabolic diseases complicating childbirth; Z37.0 Single live birth; Z3A.39 39 weeks gestation of pregnancy; E03.9 Hypothyroidism, unspecified; O99.02 Anemia complicating childbirth; O24.429 Gestational diabetes mellitus in childbirth, unspecified control; O69.81X0 Labor and delivery complicated by cord around neck, without compression, not applicable or unspecified; D62 Acute posthemorrhagic anemia
CPT/HCPCS: 36415; 51702; 59025; 59409; 80053; 83735; 85025; 86592; 86850; 86900; 86901; A9270-GY; J0290; J0665; J2405; J3010; J3490; J7120; J7999

== ENCOUNTER 2024-03-02 18:22 | Emergency (ER) | payer BC ==
[2024-03-02 19:35] VITALS: BP 130/92; PULSE 91
[2024-03-02] MEDS: Sodium Chloride 0.9% 1,000 ML IV ONE (19:40)
[2024-03-02 19:44] LABS: BASOPHILS PERCENT AUTO 0.3 % (0.0-1.0); EOSINOPHILS ABSOLUTE AUTO 0.1 K/mm3 (0.0-0.4); EOSINOPHILS PERCENT AUTO 1.5 % (0.0-6.0); HEMATOCRIT 42.1 % (37.0-47.0); HEMOGLOBIN 13.6 gm/dl (12.0-16.0); IMMATURE GRAN ABSOLUTE AUTO 0.02 K/mm3 (0.00-0.05); IMMATURE GRAN PERCENT AUTO 0.3 % (0.0-0.4); LYMPHOCYTES ABSOLUTE AUTO 1.1 K/mm3 (1.0-4.8); LYMPHOCYTES PERCENT AUTO 18.2 % (24.0-44.0); MEAN CORPUSCULAR HEMOGLOBIN 26.5 pg (28.0-32.0); MEAN CORPUSCULAR HGB CONC 32.3 g/dl (32.0-36.0); MEAN CORPUSCULAR VOLUME 81.9 fl (83.0-99.0); MEAN PLATELET VOLUME 10.2 fl (9.4-12.3); MONOCYTES ABSOLUTE AUTO 0.3 K/mm3 (0.0-0.8); MONOCYTES PERCENT AUTO 4.8 % (0.0-8.0); NEUTROPHILS ABSOLUTE AUTO 4.4 K/mm3 (1.8-7.7); NEUTROPHILS PERCENT AUTO 74.9 % (41.0-71.0); PLATELET COUNT,PLT 311 K/mm3 (150-400); RED BLOOD CELL COUNT 5.14 M/mm3 (4.10-5.30); WHITE BLOOD CELL COUNT,WBC 5.83 K/mm3 (3.9-11.3)
[2024-03-02 20:06] LABS: A/G RATIO 1.1 (1-2); ALBUMIN 4.2 g/dl (3.4-5.0); ANION GAP 15.7 (5-15); BILIRUBIN TOTAL 0.4 mg/dL (0.2-1.0); CALCIUM 9.9 mg/dL (8.5-10.1); EST CRCL DRUG DOSING (CG) 69.31 mL/min; POTASSIUM,K 3.7 mEq/L (3.5-5.1); PROTEIN TOTAL,TP 8.2 g/dl (6.4-8.2)
== END 2024-03-02 22:35 | disposition home or self-care (01) ==
LOC: JD.ED 18:22
DX: R42 Dizziness and giddiness (principal); N93.9 Abnormal uterine and vaginal bleeding, unspecified; E03.9 Hypothyroidism, unspecified; Z86.16 Personal history of COVID-19; Z90.49 Acquired absence of other specified parts of digestive tract; Z79.890 Hormone replacement therapy; Z79.899 Other long term (current) drug therapy; Z88.8 Allergy status to other drugs, medicaments and biological substances
CPT/HCPCS: 36415; 76830; 80053; 83540; 85025; 86850; 86900; 86901; 96360; 99285; J7030; 99283

== ENCOUNTER 2024-06-19 16:48 | Emergency (ER) | payer BC, OTHER ==
[2024-06-19 17:54] LABS: APPEARANCE,URINE CLEAR (Clear); BILIRUBIN,URINE NEGATIVE (Negative); COLOR,URINE LIGHT YELLOW (Yellow); GLUCOSE,URINE NEGATIVE (Negative); KETONES,URINE TRACE (Negative); LEUKOCYTE ESTERASE,URINE NEGATIVE (Negative); NITRITE,URINE NEGATIVE (Negative); OCCULT BLOOD,URINE NEGATIVE (Negative); PROTEIN,URINE NEGATIVE (Negative); UROBILINOGEN,URINE 0.2 (0.2-1.0)
[2024-06-19 19:22] VITALS: BP 124/65; PULSE 64
== END 2024-06-19 19:21 | disposition home or self-care (01) ==
LOC: JD.ED 16:48
DX: N81.0 Urethrocele (principal); E03.9 Hypothyroidism, unspecified; Z86.16 Personal history of COVID-19; Z90.49 Acquired absence of other specified parts of digestive tract; Z88.8 Allergy status to other drugs, medicaments and biological substances; Z79.890 Hormone replacement therapy; Z79.899 Other long term (current) drug therapy
CPT/HCPCS: 81003; 99283

== ENCOUNTER 2024-08-31 14:26 | Emergency (ER) | payer OTHER ==
[2024-08-31] MEDS ORDERED: Meclizine 25 MG Tab PO ONE (15:45)
[2024-08-31] MEDS: Sodium Chloride 0.9% 1,000 ML IV ONE (15:46)
[2024-08-31] MEDS: LORazepam 2 MG/ML SDV IVPUSH ONE (15:46)
[2024-08-31 16:01] LABS: BASOPHILS PERCENT AUTO 0.5 % (0.0-1.0); EOSINOPHILS ABSOLUTE AUTO 0.3 K/mm3 (0.0-0.4); EOSINOPHILS PERCENT AUTO 3.8 % (0.0-6.0); HEMATOCRIT 36.6 % (37.0-47.0); HEMOGLOBIN 11.9 gm/dl (12.0-16.0); IMMATURE GRAN ABSOLUTE AUTO 0.04 K/mm3 (0.00-0.05); IMMATURE GRAN PERCENT AUTO 0.6 % (0.0-0.4); LYMPHOCYTES ABSOLUTE AUTO 1.5 K/mm3 (1.0-4.8); LYMPHOCYTES PERCENT AUTO 21.9 % (24.0-44.0); MEAN CORPUSCULAR HGB CONC 32.5 g/dl (32.0-36.0); MEAN PLATELET VOLUME 10.3 fl (9.4-12.3); MONOCYTES ABSOLUTE AUTO 0.4 K/mm3 (0.0-0.8); MONOCYTES PERCENT AUTO 6.2 % (0.0-8.0); NEUTROPHILS ABSOLUTE AUTO 4.4 K/mm3 (1.8-7.7); PLATELET COUNT,PLT 371 K/mm3 (150-400); RED BLOOD CELL COUNT 4.41 M/mm3 (4.10-5.30); WHITE BLOOD CELL COUNT,WBC 6.62 K/mm3 (3.9-11.3)
[2024-08-31 16:23] LABS: A/G RATIO 0.9 (1-2); ALBUMIN 3.5 g/dl (3.4-5.0); ANION GAP 13.4 (5-15); BILIRUBIN TOTAL 0.2 mg/dL (0.2-1.0); BUN/CREATININE RATIO 17.5 (14-18); CALCIUM 9.3 mg/dL (8.5-10.1); CREATININE 0.8 mg/dL (0.55-1.02); EST CRCL DRUG DOSING (CG) 83.14 mL/min; POTASSIUM,K 4.4 mEq/L (3.5-5.1); PROTEIN TOTAL,TP 7.6 g/dl (6.4-8.2)
[2024-08-31 17:34] LABS: APPEARANCE,URINE CLEAR (Clear); BILIRUBIN,URINE NEGATIVE (Negative); COLOR,URINE YELLOW (Yellow); GLUCOSE,URINE NEGATIVE (Negative); KETONES,URINE NEGATIVE (Negative); LEUKOCYTE ESTERASE,URINE TRACE (Negative); NITRITE,URINE NEGATIVE (Negative); OCCULT BLOOD,URINE NEGATIVE (Negative); PH,URINE 6.5 (5.0-8.0); PROTEIN,URINE NEGATIVE (Negative); UROBILINOGEN,URINE 0.2 (0.2-1.0)
[2024-08-31 17:50] LABS: BACTERIA,URINE FEW /hpf (FEW); MUCUS,URINE FEW /hpf (FEW); RBC,URINE 0-5 /hpf (0-5); SQUAMOUS EPITHELIAL CELLS,UR 0-5 /hpf (0-5)
[2024-08-31 18:12] VITALS: BP 114/78; PULSE 85
== END 2024-08-31 18:12 | disposition home or self-care (01) ==
LOC: JD.ED 14:26
DX: F43.0 Acute stress reaction (principal); E03.9 Hypothyroidism, unspecified; Z79.899 Other long term (current) drug therapy; Y84.6 Urinary catheterization as the cause of abnormal reaction of the patient, or of later complication, without mention of misadventure at the time of the procedure; Z88.8 Allergy status to other drugs, medicaments and biological substances; Z90.49 Acquired absence of other specified parts of digestive tract; Z86.16 Personal history of COVID-19
CPT/HCPCS: 36415; 80053; 81001; 82550; 83690; 83735; 85025; 96361; 96374; 99283; C1758; J2060; J7030; 99284